=== PATIENT | female | born 1935 | race Two or more races ===

== ENCOUNTER 2019-07-09 20:19 | Outpatient (CLI) | payer MEDICARE | END 2019-07-09 20:20 | disposition EMS.NT | LOC: EMS 20:19 | PROVIDERS: ATTEND Surgery | DX: R55 Syncope and collapse (principal) ==

== ENCOUNTER 2020-10-05 15:05 | Outpatient (CLI) | payer MEDICARE | END 2020-10-05 15:06 | disposition home or self-care (01) | LOC: COV 15:05 | PROVIDERS: ATTEND Surgery | DX: Z01.812 Encounter for preprocedural laboratory examination (principal); C50.911 Malignant neoplasm of unspecified site of right female breast; Z20.822 Contact with and (suspected) exposure to COVID-19 ==

== ENCOUNTER 2020-10-08 08:04 | Day surgery (SDC) | payer MEDICARE ==
[~2020-10-08 08:04] MED LIST: ceFAZolin 2 GM/50 ML 2 GM/50 ML BAG IV ONE
--- OUTSIDE RECORDS SUMMARY | 2020-10-08 08:07 | EXTERNAL MEDICAL SUMMARY RPT | Continuity of Care Document ---
:1935 Demographics Phone Unavailable Preferred Language spn Marital Status Unknown Zoroastrian Affiliation Unknown Race Unknown Ethnic Group Unknown Author Organization [facility] Address [address] [place] [address] Phone Care Team Providers Name Role Phone Demmler Unavailable Unavailable Problems date description facility [id number] Malignant neoplasm of unspecified site of right [facility] Social History date description facility [id number]
[2020-10-08] MEDS ORDERED: BUFFERED LIDOCAINE 10 ML SYRINGE ONE (08:34)
[2020-10-08] MEDS ORDERED: BUPIVACAINE 0.5% PF 30 ML VIAL INFIL ONE ×2 (11:43)
[2020-10-08] MEDS ORDERED: PROPOFOL 200 MG/20 ML VIAL IVP ONE ×2 (11:44→12:40)
[2020-10-08] MEDS ORDERED: LIDOCAINE-MPF 2% 5 ML VIAL ONE (11:44)
[2020-10-08] MEDS ORDERED: LIDOCAINE 2%-EPI 1:100000 20 ML MDV SUBQ ONE ×2 (11:44)
[2020-10-08] MEDS ORDERED: fentaNYL 100 MCG/2 ML VIAL ONE (11:44)
[2020-10-08] MEDS ORDERED: MIDAZOLAM 2 MG/2 ML VIAL ONE (11:44)
--- NOTE | 2020-10-08 11:46 | ANESTHESIA ---
Pre-Anesthesia VS, & Labs - Diagnosis right breast cancer - Procedure right breast lumpectomy and sentinel node biopsy Vital Signs: Temp Pulse Resp BP Pulse Ox 36 C L 88 20 138/77 H 97 10/08/20 08:15 10/08/20 08:15 10/08/20 08:15 10/08/20 08:15 10/08/20 08:15 Height: 5 ft 2 in Weight (kg): 90.6 kg Body Mass Index: 36.5 BMI Classification: Obese - NPO >8 hours - Is Patient ?: No Home Medications and Allergies Home Medications: Ambulatory Orders Aspirin [Aspirin EC] 81 mg PO DAILY 10/01/20 Hydrochlorothiazide 25 mg PO DAILY 10/01/20 Valsartan [Diovan] 80 mg PO DAILY 10/01/20 Levothyroxine [Synthroid] 137 mcg PO DAILY 08/04/15 Aspirin [Aspirin EC] 81 mg PO DAILY 10/01/20 Hydrochlorothiazide 25 mg PO DAILY 10/01/20 Valsartan [Diovan] 80 mg PO DAILY 10/01/20 Allergies/Adverse Reactions: Allergies Allergy/AdvReac Type Severity Reaction Status Date / Time amoxicillin Allergy Rash Verified 10/01/20 10:26 nitrofurantoin Allergy Rash Verified 10/01/20 10:26 [From Macrobid] Penicillins Allergy Rash Verified 08/04/15 13:02 phenazopyridine Allergy Rash Verified 10/01/20 10:26 [From Pyridium] sulfamethoxazole Allergy Rash Verified 10/01/20 10:26 [From Bactrim] trimethoprim [From Bactrim] Allergy Rash Verified 10/01/20 10:26 Anes History & Medical History - Anesthetic History Anesthesia Complications: reports: Post-Operative Nausea/Vomiting - Medical History Cardiovascular: reports: Hypertension Pulmonary: reports: None Gastrointestinal: reports: None Urinary: reports: Chronic bladder infection Neuro: reports: TIA Musculoskeletal: reports: Osteoarthritis Endocrine/Autoimmune: reports: HyPOthyroidism Skin: reports: None Smoking Status: Never smoker Psychosocial: reports: No issues indicated History of Cancer?: Yes (breast and thyroid) - Surgical History General: reports: Cholecystectomy, Appendectomy, Colonoscopy Eyes Ears Nose Throat (EENT): reports: Cataracts Gynecologic: reports: Hysterectomy, Oophrectomy Orthopedic: reports: Rotator cuff repair, Arthroscopic surgery Exam General: Alert, Oriented x3, Cooperative, No acute distress Dental: WNL Mouth Openin Fingerbreadth Neck Mobility: Normal Mallampati classification: II Thyromental Distance: less than 4 cm Respiratory: Lungs clear, Normal breath sounds, No respiratory distress, No accessory muscle use Cardiovascular: Regular rate, Normal S1, Normal S2, No murmurs Mental/Cognitive Status: Alert/Oriented X3, Normal for patient Plan Anesthesia Type: General Consent for Procedure(s) Verified and Reviewed: Yes Code Status: Attempt Resuscitation ASA classification: 2-Mild systemic disease Is this case an emergency?: No
[2020-10-08] MEDS ORDERED: PHENYLEPHRINE 10 MG/ML VIAL ONE (12:06)
[2020-10-08] MEDS ORDERED: ONDANSETRON 4 MG/2 ML VIAL ONE (12:13)
[2020-10-08] MEDS ORDERED: DEXAMETHASONE 4 MG/ML VIAL ONE (12:13)
[2020-10-08] MEDS ORDERED: ePHEDrine 50 MG/ML VIAL IVP ONE (12:26)
[2020-10-08] MEDS ORDERED: SODIUM CHLORIDE 0.9% 10 ML VIAL IVP ONE (12:26)
--- NOTE | 2020-10-08 13:13 | OPERATIVE REPORT ---
Operative Report - General Procedure Date: 10/08/20 Planned Procedure: Right breast lumpectomy and sentinel node biopsy after needle localization and mapping Pre-Op Diagnosis: Biopsy-proven right breast cancer Procedure Performed: Right breast lumpectomy and sentinel node biopsy after needle localization and mapping Post Op Diagnosis: Biopsy-proven right breast cancer - Procedure Note Primary Surgeon: Marleen Anesthesia Provider: NOREEN Arora Anesthesia Technique: General LMA Pathology: 1. Right breast -Marked for orientation with short stitch superior, long stitch lateral, and double stitch anterior 2. [place] node number 1-10-second count >8900 3. [place] node number 2-10-second count > 9900 Estimated Blood Loss (mL): 15 Indications: Biopsy-proven right breast cancer Findings: 2 sentinel nodes No other concerning axillary or mammary pathology appreciated Complications: None apparent - Other Other Information/Narrative: After obtaining informed consent, the patient was brought to the operating room and placed in the supine position on the operating table. Following successful induction of general endotracheal anesthesia, appropriate padding of all bony prominences, and placement of appropriate monitors, the right breast was prepped and draped in the standard surgical fashion. A timeout was held per scope protocol. All elements of the surgical safety checklist were followed before, during, and after the procedure. We began the procedure with a sentinel node dissection. The site of the brightest node had been marked in radiology with 2 skin marker axis. The neoprobe was used to identify the site of greatest uptake at level 2 in the patient's axilla. An incision was created over this area of uptake and carried through the skin and subcutaneous tissue to enter the axillary node packet. The first sentinel node was identified. It was noted to be slightly enlarged but otherwise grossly normal in appearance. It was carefully dissected free from surrounding stop structures sharply, all lymphatics and vasculature were addressed with clips prior to division. The node was liberated into the field. 10-second counts are recorded. Survey of the axilla revealed a second target immediately posterior to the first. This node was quite small and normal in appearance. It was carefully dissected free from surrounding stop structures sharply, all lymphatics and vasculature were addressed with clips prior to division. The node was liberated into the field. 10-second counts are recorded. Background in the axilla was checked and found to be 6-14. Background in the room was 0. The axillary incision was then closed in 2 layers with Vicryl and Monocryl sutures. We turned our attention to the right breast mass. The area over the mass and in the periareolar region was infiltrated with a mixture of local anesthetics to cry to field block. A periareolar incision was then created and the mass and associated wire carefully dissected sharply from the subcutaneous tissue anteriorly and from the retromammary bursa posteriorly. The mass was removed in a single piece in a medial to lateral fashion. It was marked with a short stitch superior, long stitch lateral, and double stitch anterior. It was finally liberated sharply and delivered into the field. The wound was checked for hemostasis. It was irrigated again with warm water. The specimen xray was examined and found to contain the target clip and lesion well centered. The wound was then closed in 2 layers with Vicryl and Monocryl sutures. All sponge, needle, and instrument counts were correct at the conclusion of the case. The patient was let awakened anesthesia without difficulty and taken to the postanesthesia care unit in good condition.
[2020-10-08] MEDS ORDERED: ONDANSETRON 4 MG/2 ML VIAL IVP PRN ×2 (13:19→13:28)
[2020-10-08] MEDS ORDERED: oxyCODONE 5 MG TABLET PO PRN (13:19)
[2020-10-08] MEDS ORDERED: ACETAMINOPHEN 325 MG TABLET PO PRN (13:19)
[2020-10-08] MEDS ORDERED: IBUPROFEN 600 MG TABLET PO PRN (13:19)
[2020-10-08] MEDS ORDERED: LACTATED RINGERS 1,000 ML IV ONE (13:27)
[2020-10-08] MEDS ORDERED: ATROPINE ABBOJECT 1 MG/10 ML SYRINGE IVP PRN (13:28)
[2020-10-08] MEDS ORDERED: METOCLOPRAMIDE 10 MG/2 ML VIAL IVP PRN (13:28)
[2020-10-08] MEDS ORDERED: HYDROmorphone 0.5 MG/0.5 ML SYRINGE IVP PRN (13:28)
[2020-10-08] MEDS ORDERED: ePHEDrine 50 MG/ML VIAL IVP PRN (13:28)
[2020-10-08] MEDS ORDERED: fentaNYL 100 MCG/2 ML VIAL IVP PRN (13:28)
[2020-10-08] MEDS ORDERED: MORPHINE 2 MG/ML CARPUJECT IVP PRN (13:28)
[2020-10-08] MEDS ORDERED: NALOXONE 0.4 MG/ML VIAL IVP PRN (13:28)
[2020-10-08] MEDS ORDERED: LACTATED RINGERS 1,000 ML IV SCH (14:00)
[2020-10-08 14:32] VITALS: BP 117/56
--- NOTE | 2020-10-08 14:36 | Nuclear Medicine Report ---
PROCEDURE: Lymph Node Scintigraphy INDICATIONS: RT BREAST CA RADIOPHARMACEUTICAL: 0.5-1.0 mCi Millipore filtered Tc-99m sulfur colloid. TECHNIQUE: The area around the nipple was prepped and draped in a sterile fashion. Tc-99m sulfur colloid was in jected intra-dermally in the outer edge of the areola in the right breast. Images were obtained subs equently. A body contour outline was obtained. FINDINGS: There is 1 lymph node in the ipsilateral axilla, which is marked on the skin and the images for refer ring physician. IMPRESSION: Administration of radiotracer into the right breast periareolar region for intra-operati ve sentinel lymph node localization, identifying 1 lymph node at the right axilla, marked on the skin surface to assist in surgical localization. Reviewed by: Wood Noguera MD on 10/08/2020 2:35 PM PDT Approved by: Wood Noguera MD on 10/08/2020 2:35 PM PDT Station ID: [id number]
--- NOTE | 2020-10-08 15:24 | ANESTHESIA POST OP EVALUATION ---
Anesthesia Post Eval - Post Anesthesia Eval Vitals: Last Vital Signs Temp 36.2 C L 10/08/20 14:20 Pulse 86 10/08/20 14:20 Resp 16 10/08/20 14:20 BP 117/56 L 10/08/20 14:20 Pulse Ox 96 10/08/20 14:20 CV Function Including HR & BP: Stable Pain Control: Satisfactory Nausea & Vomiting: Negative Mental Status: Baseline Respiratory Status: Airway Patent Hydration Status: Satisfactory Anesthesia Complications: None
[2020-10-08] MEDS ORDERED: BUFFERED LIDOCAINE 10 ML SYRINGE IU ONE (15:54)
--- NOTE | 2020-10-09 08:12 | Mammography Report ---
UNILATERAL RIGHT DIGITAL DIAGNOSTIC MAMMOGRAM: 10/08/2020 CLINICAL: Pre-op wire localization with ultrasound guidance. Comparison is made to exam dated: 10/08/2020 localization - [facility]. There are scattered fibroglandular elements in right breast. There is a mass in the right breast at 10 o'clock anterior depth, and this was wire-located for surgi adelina excision today. IMPRESSION: KNOWN BIOPSY PROVEN MALIGNANCY The mass in the right breast was localized to assist in surgical excision. Wire at expected margin o f the mass and localization clip from prior biopsy. Future imaging is recommended as follows: 03/08/2021 left mammogram and an ultrasound. This exam was interpreted at Station ID: [id number]. NOTE: For mammograms, a report in lay terms will be sent to the patient. Approximately 15% of breast malignancies will not be visualized mammographically. In the management of a palpable breast mass, a negative mammogram must not discourage biopsy of a clinically suspicious lesion. Electronically Signed By: Wood Noguera M.D. sdh/:10/08/2020 16:20:58 ACR BI-RADS Category 6: Known biopsy proven malignancy 3346F PARENCHYMAL PATTERN: (A) - The breast(s) demonstrate(s) scattered fibroglandular densities. BI-RADS CATEGORY: (6) - 6 Unspecified - other recall n/a LATERALITY: (B)
--- NOTE | 2020-10-09 08:12 | Mammography Report ---
SPECIMEN: 10/08/2020 CLINICAL: Right breast specimen. Specimen from OR was evaluated. IMPRESSION: SPECIMEN The specimen radiograph contains the prior biopsy marker and the mass of concern, faintly visualized. Future imaging is recommended as follows: 03/08/2021 left mammogram and an ultrasound. This exam was interpreted at Station ID: [id number]. Wood Noguera M.D. sdh/:10/08/2020 16:17:09 BI-RADS CATEGORY: () - Unspecified - other recall n/a LATERALITY: (B)
--- NOTE | 2020-10-09 08:12 | Ultrasound Report ---
ULTRASOUND GUIDED WIRE LOCALIZATION RIGHT BREAST WITH POST DIGITAL MAMMOGRAPHIC AND ULTRASOUND IMAGIN G AND RADIOGRAPHIC SPECIMEN IMAGIN10/08/2020 CLINICAL: Right breast wire placement. Correlation is made to exams dated: 09/05/2020 breast MRI, 07/05/2020 ultrasound biopsy, 07/05/2020 rebecca mogram, 06/26/2020 ultrasound, 06/05/2020 ultrasound, and 06/05/2020 mammogram - [facility]. A wire localization using ultrasound guidance was performed for the concerning circumscribed lobulate d mass located in the right breast at 10 o'clock middle depth. This was described on the previous ma mmography and ultrasound reports. The skin was prepped in the usual manner. Local anesthetic was ad ministered to the access site. The localization was approached from the medial aspect. A J-hook wir e was inserted into the targeted area through an introducer device under ultrasound guidance. A ster ile dressing was applied to the access site. Post placement digital mammographic and ultrasound imag ing demonstrates the tip demarcates the boundaries of the targeted area. IMPRESSION: WIRE LOCALIZATION Wire localization for the mass in the right breast at 10 o'clock middle depth was successful. The im aged specimen includes the lesion and a biopsy clip. A specimen radiograph was obtained. Future imaging is recommended as follows: 03/08/2021 left mammogram and an ultrasound. This exam was interpreted at Station ID: [id number]. Wood Noguera M.D. sdh/:10/08/2020 16:15:18 BI-RADS CATEGORY: () - Unspecified - other recall n/a LATERALITY: (B)
== END 2020-10-08 08:05 | disposition home or self-care (01) ==
LOC: SDS 08:04
PROVIDERS: ATTEND Surgery
PROC: 0HBT0ZX Excision of Right Breast, Open Approach, Diagnostic (ICD-10-PCS; 2020-10-08)
PROC: 0HBT0ZZ Excision of Right Breast, Open Approach (ICD-10-PCS; principal; 2020-10-08 12:45)
DX: C50.411 Malignant neoplasm of upper-outer quadrant of right female breast (principal); Z17.0 Estrogen receptor positive status [ER+]; I10 Essential (primary) hypertension; Z86.73 Personal history of transient ischemic attack (TIA), and cerebral infarction without residual deficits; E66.9 Obesity, unspecified; Z68.36 Body mass index [BMI] 36.0-36.9, adult
CPT/HCPCS: 19285; 19301; 38500; 76098; 77065; 78195; J0690; J7120

== ENCOUNTER 2021-09-13 10:52 | Outpatient (CLI) | payer MEDICARE ==
--- NOTE | 2021-09-13 11:35 | DEXA Report ---
PROCEDURE: Dexa Spine and/or Hip INDICATIONS: POST MENOPAUSAL TECHNIQUE: Dual energy x-ray absorptiometry (DXA) was performed on a [employer] CV System. Regions measur ed are the AP Spine, femoral neck, and if needed forearm. COMPARISON: None. FINDINGS: Lumbar Spine: Bone Mineral Density 1.118 g/cm/cm,T score -0.5. Left Hip: Bone Mineral Density 0.774 g/cm/cm,T score -1.9. Left Femoral Neck: Bone Mineral Density 0.713 g/cm/cm, T score -2.3. (T score greater or equal to -1.0: NORMAL) (T score from -1.1 to -2.4: OSTEOPENIA) (T score less than or equal to -2.5 to: OSTEOPOROSIS) Impression: Osteopenia. Patients with diagnosis of osteoporosis or osteopenia should have regular bone mineral density assess ment. For those eligible for Medicare, routine testing is allowed once every 2 years. Testing frequ ency can be increased for patients who have rapidly progressing disease or for those who are receivin g medical therapy to restore bone mass. Reviewed by: Ilia German MD on 09/13/2021 11:33 AM PDT Approved by: Ilia German MD on 09/13/2021 11:33 AM PDT Station ID: [id number]
== END 2021-09-13 10:53 | disposition home or self-care (01) ==
LOC: DI 10:52
PROVIDERS: ATTEND Internal Medicine Hematology & Oncology
DX: Z78.0 Asymptomatic menopausal state (principal); M85.89 Other specified disorders of bone density and structure, multiple sites

== ENCOUNTER 2022-09-16 13:32 | Emergency (ER) | payer MEDICARE ==
--- NOTE | 2022-09-16 13:58 | ED Physician Documentation ---
PD HPI FOCAL NEURO - Stated complaint Stated Complaint: SLURRED SPEECH/CONFUSION - Chief complaint Chief Complaint: Neuro - History obtained from History obtained from: Patient, Family - History of Present Illness Timing - onset: How many minutes ago (35), Today Timing - duration: Minutes (5-10) Timing - details: Abrupt onset, Now resolved Severity of deficit: Moderate (daughter noted the patient to abruptly start having trouble communicating with saying inappropriate words to answer questions and answering most questions with just "I'm okay". No focal weakness. Concern for CVA and so started to bring pt immediately to ED. Symptoms improved completely 5-10 min.) Weakness: No: Face, Arm, Leg Numbness: No: Face, Arm, Leg Associated symptoms: No: Headache, Nausea / vomiting, Head injury Similar symptoms before: Diagnosis (had similar symptoms 2017 and dx with TIA; no appparent CVA at that time.) Recently seen: Not recently seen Review of Systems Constitutional: denies: Fever, Chills Nose: denies: Rhinorrhea / runny nose, Congestion Throat: denies: Sore throat Respiratory: denies: Cough Neurologic: reports: Difficulty speaking. denies: Focal weakness, Numbness, Headache, Head injury, LOC PD PAST MEDICAL HISTORY - Past Medical History Cardiovascular: Hypertension Respiratory: None Neuro: TIA Endocrine/Autoimmune: HyPOthyroidism GI: None : Chronic bladder infection HEENT: Chronic vision loss, Chronic hearing loss, Other Psych: None, Anxiety Musculoskeletal: Osteoarthritis Derm: None - Past Surgical History Past Surgical History: Yes General: Cholecystectomy, Appendectomy, Colonoscopy Ortho: Rotator cuff repair, Arthroscopic surgery /PIGMENT MIXER: Hysterectomy, Oophrectomy HEENT: Cataracts - Present Medications Home Medications: Ambulatory Orders Medication Instructions Recorded Confirmed Levothyroxine [Synthroid] 137 mcg PO DAILY 08/04/15 09/16/22 Aspirin [Aspirin EC] 81 mg PO DAILY 10/01/20 09/16/22 Valsartan [Diovan] 80 mg PO DAILY 10/01/20 09/16/22 hydroCHLOROthiazide 12.5 mg PO DAILY 10/01/20 09/16/22 [Hydrochlorothiazide] Clopidogrel [Plavix] 75 mg PO DAILY 30 Days #30 tablet 09/16/22 - Allergies Allergies/Adverse Reactions: Allergies Allergy/AdvReac Type Severity Reaction Status Date / Time amoxicillin Allergy Rash Verified 11/06/20 15:31 nitrofurantoin Allergy Rash Verified 11/06/20 15:31 [From Macrobid] Penicillins Allergy Rash Verified 11/06/20 15:31 phenazopyridine Allergy Rash Verified 11/06/20 15:31 [From Pyridium] sulfamethoxazole Allergy Rash Verified 11/06/20 15:31 [From Bactrim] trimethoprim [From Bactrim] Allergy Rash Verified 11/06/20 15:31 - Social History Does the pt smoke?: No Smoking Status: Never smoker Does the pt drink ETOH?: Yes Does the pt have substance abuse?: No - Immunizations Immunizations are current?: Yes PD ED PE NORMAL - Vitals Vital signs reviewed: Yes - General General: Alert and oriented X 3, No acute distress, Well developed/nourished - HEENT HEENT: Atraumatic, PERRL, EOMI - Neck Neck: Supple, no meningeal sign, No adenopathy - Cardiac Cardiac: RRR, No murmur - Respiratory Respiratory: Clear bilaterally - Derm Derm: Normal color, Warm and dry - Extremities Extremities: No edema, No calf tenderness / cord - Neuro Neuro: Alert and oriented X 3, calender let off operator 2-12 intact, No motor deficit, No sensory deficit, Normal speech, Other NIHSS - Level of Consciousness Level of consciousness: (0) Alert, Keenly responsive LOC Questions: (0) Answers both Q's correct LOC Commands: (0) Performs both correctly - Gaze Best Gaze: (0) Normal - Visual Visual: (0) No loss - Facial Palsy Facial Palsy: (0) Normal, symmetrical movement - Motor Arms (both separate) Motor Arm (right): (0) No drift Motor Arm (left): (0) No drift - Motor Legs (both separate) Motor Leg (right): (0) No drift Motor Leg (left): (0) No drift - Limb Ataxia Limb Ataxia: (0) Absent - Sensory Sensory: (0) Normal - Best Language Best Language: (0) No aphasia - Dysarthria Dysarthria: (0) Normal - Extinction and Inattention (formally neg Extinction and inattention: (0) No abnormality - Total Score/Results Total Score/Result: 0 Results - Vitals Vitals: Vital Signs - 24 hr 09/16/22 09/16/22 09/16/22 13:45 14:27 15:00 Temperature 36.8 C Heart Rate 82 81 77 Respiratory 20 26 H 23 Rate Blood Pressure 189/72 H 131/80 H 137/77 H O2 Saturation 97 98 96 09/16/22 17:00 Temperature 36.1 C L Heart Rate 83 Respiratory 20 Rate Blood Pressure 147/78 H O2 Saturation 94 Oxygen O2 Source Room air - Labs Labs: Laboratory Tests 09/16/22 09/16/22 14:49 14:49 WBC 8.0 RBC 5.13 Hgb 14.3 Hct 44.2 MCV 86.2 MCH 27.9 MCHC 32.4 RDW 12.7 Plt Count 274 MPV 9.2 Neut # (Auto) 6.0 Lymph # (Auto) 1.2 L [place] # (Auto) 0.4 Eos # (Auto) 0.3 Baso # (Auto) 0.1 Absolute Nucleated RBC 0.00 Nucleated RBC % 0.0 Sodium 134 L Potassium 4.2 Chloride 98 L Carbon Dioxide 29 Anion Gap 7.0 BUN 24 H Creatinine 0.6 Estimated GFR (MDRD) 95 Glucose 115 H Calcium 9.0 Total Bilirubin 0.7 AST 19 ALT 19 Alkaline Phosphatase 117 Total Protein 7.1 Albumin 3.8 Globulin 3.3 Albumin/Globulin Ratio 1.2 Lipase 41 - Rads (name of study) head and neck CT-A Relevant Findings:: Prelim report reviewed (no acute findings on Head CT. No hemodynamically significant stenoses on angio portion. ), See rad report PD Medical Decision Making - ED course Complexity details: reviewed results, re-evaluated patient (head and neck CT-A done without acute abnormal findings nor any hemodynamically significant stenoses. ), considered differential, d/w patient, d/w family (daughter, who gives her perspective on onset and duration of symptoms. ) ED course: had abrupt aphasia that has improved enroute here. Lasted 10-15 minutes. Had similar about 6 years ago and attirbuted to small stroke/TIA. No focal weakness and has had normal speech at home. No signs of prior CVA. The approach could be CT-A head and neck versus MRI/MRA or MRI with carotid dopplers. the CT is most available at this time. CT-A did not show any LVO, bleeds. stenoses, nor signs of acute CVA. Chronic microvascular changes noted on report. TIA symptoms now resolved. She was on baby ASA daily. Neurology guidelines commonly suggest dual anti-platelet treatment for 30 days. Will add Plavix. Patient and daughter are comfortable with results and plan. Patient wanting to go home. Departure - Departure Disposition: 01 Home, Self Care Clinical Impression: Aphasia, TIA (transient ischemic attack) Condition: Stable Record reviewed to determine appropriate education?: Yes Instructions: ED Transient Ischemic Attack Follow-Up: Jair Eckert MD [Primary Care Provider] - Prescriptions: Clopidogrel [Plavix] 75 mg PO DAILY 30 Days #30 tablet Comments: Your CT scan and angiograms of the neck and head do not show any acute abnormalities. They do comment on chronic microvascular changes (essentially age-related brain shrinkage). There were no areas of bleeding, tumors, swelling or obvious's new stroke. The contrast showed good blood flow to all areas and there were no blockages or hemodynamically significant stenoses. This essentially means no areas that need stenting or opening. However it is assumed you had a temporary blockage of some of the smaller vessels within the brain leading to your symptoms. For a TIA, the neurology guidelines typically suggest dual platelet therapy of both a baby aspirin and Plavix (clopidogrel) for 30 days and then to continue with either an increased dose of aspirin or Plavix alone after that. Follow-up with your primary care in the next week or 2, call for an appointment. See which they would prefer to continue with after the 30 days. Otherwise continue with your usual medicines. I sent your prescription to [facility] pharmacy. Discharge Date/Time: 09/16/22 17:29
[2022-09-16] MEDS ORDERED: SODIUM CHLORIDE 0.9% 1,000 ML IV STA (14:43)
[2022-09-16 14:55] LABS: BASOPHILS # (AUTO) 0.1 10^3/uL (0.0-0.1); BASOPHILS % (AUTO) 0.6 %; EOSINOPHILS # (AUTO) 0.3 10^3/uL (0.0-0.7); HCT - HEMATOCRIT 44.2 % (37.0-47.0); HGB - HEMOGLOBIN 14.3 g/dL (12.0-16.0); LYMPHOCYTES # (AUTO) 1.2 10^3/uL (1.5-3.5); LYMPHOCYTES % (AUTO) 15.2 %; MEAN CORPUSCULAR HEMOGLOBIN 27.9 pg (27.0-31.0); MEAN CORPUSCULAR HGB CONC 32.4 g/dL (32.0-36.0); MEAN CORPUSCULAR VOLUME 86.2 fL (81.0-99.0); MEAN PLATELET VOLUME 9.2 fL (7.9-10.8); MONOCYTES # (AUTO) 0.4 10^3/uL (0.0-1.0); MONOCYTES % (AUTO) 5.4 %; NEUTROPHILS % (AUTO) 74.3 %; PLT - PLATELET COUNT 274 10^3/uL (130-450); RED BLOOD COUNT 5.13 10^6/uL (4.20-5.40); RED CELL DISTRIBUTION WIDTH 12.7 % (12.0-15.0)
[2022-09-16 15:14] LABS: ALBUMIN 3.8 g/dL (3.2-5.5); ALBUMIN/GLOBULIN RATIO 1.2 (1.0-2.2); BILIRUBIN,TOTAL 0.7 mg/dL (0.2-1.0); CREATININE 0.6 mg/dL (0.4-1.0); POTASSIUM 4.2 mmol/L (3.5-5.0); TOTAL PROTEIN 7.1 g/dL (6.7-8.2)
[2022-09-16] MEDS ORDERED: iohexoL-300 100 ML VIAL ONE (15:21)
--- NOTE | 2022-09-16 16:28 | CT Report ---
PROCEDURE: ANGIO HEAD W/WO INDICATIONS: aphasia for 15-20 min CONTRAST: 80ml Omnipaque 300 TECHNIQUE: Precontrast 4.5 mm thick angled axial sections acquired from the foramen magnum to the vertex. Afte r the administration of intravenous contrast, 1 mm thick sections acquired through the [place] is. Postcontrast 4.5 mm thick sections then re-acquired from the foramen magnum to the vertex. 3-di mensional wdogrcz-grulnnezi-klzbhqitqc (MIP) and/or volume rendering reformats were acquired of the c entral intracranial vasculature. For radiation dose reduction, the following was used: automated ex posure control, adjustment of mA and/or kV according to patient size. COMPARISON: CTA head 09/16/2022, CTA head 08/04/2015 FINDINGS: Image quality: Excellent. Anterior circulation: Intracranial internal carotid arteries are normal in size and flow. The flow within the paired anterior cerebral arteries is normal and symmetric. The flow within the middle cer ebral arteries is normal and symmetric. The anterior communicating artery is seen. No aneurysms are seen. Posterior circulation: Visualized portions of the vertebral arteries demonstrate normal caliber, and join to form a normal appearing basilar artery. Flow within the posterior cerebral arteries is norm al and symmetric. No aneurysms are seen. The ventricular system and cortical sulci demonstrate atrophy, consistent for patient's stated age. There are areas of hypodensity in the periventricular and subcortical white matter. There is no acut e intra or extra-axial fluid collection. No acute hemorrhage, mass lesion or midline shift. Brainst em is unremarkable. Globes are symmetrical. Sinuses demonstrate significant mucosal thickening with air within the ethmoi d air cells and extending into the visualized maxillary sinuses. Osseous structures are intact. IMPRESSION: 1. No acute intracranial process. 2. Moderate atrophy and chronic microvascular ischemic changes. 3. No areas of hemodynamically significant stenosis, vascular occlusion or aneurysmal dilation within the anterior circulation. 4. No areas of hemodynamically significant stenosis, vascular occlusion or aneurysmal dilation within the posterior circulation. 5. Prominent mucosal thickening with air in the ethmoid and maxillary sinuses. Recommend correlation to symptoms of sinusitis. Reviewed by: Theresa Victoria MD on 09/16/2022 4:27 PM PDT Approved by: Theresa Victoria MD on 09/16/2022 4:27 PM PDT Station ID: [id number]
--- NOTE | 2022-09-16 16:31 | CT Report ---
PROCEDURE: ANGIO NECK W INDICATIONS: aphasia for 15-20 minutes CONTRAST: 80ml Omnipaque 300 TECHNIQUE: After the administration of intravenous contrast, 1.5 mm axial sections acquired from the aortic arch to the [place]. Coronal 3-D maximum intensity projection (MIP) and/or volume rendering ref ormats were then performed. For radiation dose reduction, the following was used: automated exposur e control, adjustment of mA and/or kV according to patient size. COMPARISON: CTA head 09/16/2022, CTA head 08/04/2015. FINDINGS: Image quality: Excellent. Carotid system: The great vessels demonstrate a conventional anatomy as they arise from the aortic a rch. The origins of the common carotid arteries appear patent. The common carotid arteries demonstr ate normal calibers and courses. The bifurcation regions appear normal bilaterally. The internal ca rotid arteries demonstrate normal caliber and course. Posterior circulation: The origins of the vertebral arteries appear patent. The more superior porti ons of the vertebral arteries demonstrate normal course and caliber. They join to form a normal appe aring basilar artery. Soft tissues: Visualized neck soft tissues demonstrate no suspicious abnormalities. Prominent mucosa l thickening within the maxillary and ethmoid air cells with scattered areas of air. The thyroid is n ot visualized. Bones: No suspicious bony lesions. Visualized cervical spine appears normally aligned. IMPRESSION: There are no areas of hemodynamically significant stenosis, vascular occlusion or aneurysmal dilation within the neck vasculature. Prominent sinus disease. Recommend correlation of potential sinusitis. The estimate of stenosis included in the report of the imaging study was calculated using the NASCET method CLINICAL RECOMMENDATION STATEMENTS: In patients <35 years with an ITN detected on CT, MRI, or extrathyroidal ultrasound, the Committee re commends further evaluation with dedicated thyroid ultrasound if the nodule is "e1 cm and has no susp icious imaging features, and if the patient has normal life expectancy. In patients "e35 years with an ITN detected on CT, MRI, or extrathyroidal ultrasound, the Committee r ecommends further evaluation with dedicated thyroid ultrasound if the nodule is "e1.5 cm and has no s uspicious imaging features, and if the patient has normal life expectancy. (ACR, 2014) Reviewed by: Theresa Victoria MD on 09/16/2022 4:29 PM PDT Approved by: Theresa Victoria MD on 09/16/2022 4:29 PM PDT Station ID: [id number]
[2022-09-16 17:03] VITALS: BP 147/78
[2022-09-16] MEDS ORDERED: CLOPIDOGREL 75 MG TABLET PO STA (17:10)
[2022-09-16] MEDS ORDERED: iohexoL-300 100 ML VIAL IVP ONE (17:47)
== END 2022-09-16 17:29 | disposition home or self-care (01) ==
LOC: ED 13:32
DX: G45.9 Transient cerebral ischemic attack, unspecified (principal)
CPT/HCPCS: 36415; 70496; 70498; 80053; 83690; 85025; 99284; A9270; Q9967

== ENCOUNTER 2022-09-24 17:32 | Inpatient (IN) | payer MEDICARE ==
--- NOTE | 2022-09-24 17:59 | ED Physician Documentation ---
History of Present Illness - Stated complaint Stated Complaint: FEMALE - Chief complaint Chief Complaint: General - History obtained from History obtained from: Patient, Family - Additonal information Additional information: 87-year-old woman who presents with her daughter for the evaluation of bloody diarrhea starting early today. Its dark and bloody and associated with some weakness but not dizziness. No history of internal bleeding. She was placed on Plavix about a week ago for a TIA and is also on aspirin. She has no abdominal pain with this. She has a history of CHERI, appendectomy, cholecystectomy. No abdominal vascular surgeries. Last colonoscopy approximately 3 years ago and negative per her. 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: Ovarian cancer, Breast cancer : Chronic bladder infection HEENT: Chronic vision loss, Chronic hearing loss, Other Psych: None, Anxiety Musculoskeletal: Osteoarthritis Derm: None - Past Surgical History Past Surgical History: Yes General: Cholecystectomy, Appendectomy, Colonoscopy Ortho: Rotator cuff repair, Arthroscopic surgery /RODDING MACHINE TENDER: Hysterectomy, Oophrectomy HEENT: Cataracts - Present Medications Home Medications: Ambulatory Orders Medication Instructions Recorded Confirmed Levothyroxine [Synthroid] 137 mcg PO DAILY 08/04/15 09/24/22 Aspirin [Aspirin EC] 81 mg PO DAILY 10/01/20 09/24/22 Valsartan [Diovan] 80 mg PO DAILY 10/01/20 09/24/22 Clopidogrel [Plavix] 75 mg PO DAILY 30 Days #30 tablet 09/16/22 09/24/22 - Allergies Allergies/Adverse Reactions: Allergies Allergy/AdvReac Type Severity Reaction Status Date / Time amoxicillin Allergy Rash Verified 09/24/22 17:54 nitrofurantoin Allergy Rash Verified 09/24/22 17:54 [From Macrobid] Penicillins Allergy Rash Verified 09/24/22 17:54 phenazopyridine Allergy Rash Verified 09/24/22 17:54 [From Pyridium] sulfamethoxazole Allergy Rash Verified 09/24/22 17:54 [From Bactrim] trimethoprim [From Bactrim] Allergy Rash Verified 09/24/22 17:54 - Social History Does the pt smoke?: No Smoking Status: Never smoker Does the pt drink ETOH?: Yes Does the pt have substance abuse?: No - Immunizations Immunizations are current?: Yes PD ED PE NORMAL - Vitals Vital signs reviewed: Yes - General General: Alert and oriented X 3, Other (Hard of hearing) - Cardiac Cardiac: RRR, No murmur - Respiratory Respiratory: No respiratory distress, Clear bilaterally - Abdomen Abdomen: Normal bowel sounds, Soft, Non tender - Neuro Neuro: Alert and oriented X 3, Normal speech Results - Vitals Vitals: Vital Signs - 24 hr 09/24/22 09/24/22 09/24/22 17:51 17:54 18:01 Temperature 36.5 C Heart Rate 108 H Respiratory 17 17 16 Rate Blood Pressure 125/74 O2 Saturation 98 09/24/22 09/24/22 18:49 19:43 Temperature Heart Rate 100 95 Respiratory 19 16 Rate Blood Pressure 125/73 113/73 O2 Saturation 100 98 Oxygen O2 Source Room air - Labs Labs: Laboratory Tests 09/24/22 09/24/22 09/24/22 18:00 18:00 18:00 WBC 9.2 RBC 4.33 Hgb 12.2 Hct 37.0 MCV 85.5 MCH 28.2 MCHC 33.0 RDW 12.7 Plt Count 272 MPV 9.6 Neut # (Auto) 7.5 H Lymph # (Auto) 1.2 L [place] # (Auto) 0.4 Eos # (Auto) 0.1 Baso # (Auto) 0.0 Absolute Nucleated RBC 0.00 Nucleated RBC % 0.0 PT 12.3 INR 1.1 Sodium 131 L Potassium 3.9 Chloride 95 L Carbon Dioxide 28 Anion Gap 8.0 BUN 31 H Creatinine 0.7 Estimated GFR (MDRD) 79 L Glucose 204 H Estimat Average Glucose Hemoglobin A1c % Calcium 8.6 Total Bilirubin 0.4 AST 19 ALT 14 Alkaline Phosphatase 98 Total Protein 6.7 Albumin 3.7 Globulin 3.0 Albumin/Globulin Ratio 1.2 Triglycerides Cholesterol LDL Cholesterol, Calc VLDL Cholesterol HDL Cholesterol LDL/HDL Ratio Cholesterol/HDL Ratio Blood Type Blood Type Recheck Antibody Screen 09/24/22 09/24/22 09/24/22 18:00 18:00 18:00 WBC RBC Hgb Hct MCV MCH MCHC RDW Plt Count MPV Neut # (Auto) Lymph # (Auto) [place] # (Auto) Eos # (Auto) Baso # (Auto) Absolute Nucleated RBC Nucleated RBC % PT INR Sodium Potassium Chloride Carbon Dioxide Anion Gap BUN Creatinine Estimated GFR (MDRD) Glucose Estimat Average Glucose 120 H Hemoglobin A1c % 5.8 Calcium Total Bilirubin AST ALT Alkaline Phosphatase Total Protein Albumin Globulin Albumin/Globulin Ratio Triglycerides 43 Cholesterol 108 LDL Cholesterol, Calc 60 VLDL Cholesterol 9 HDL Cholesterol 39 L LDL/HDL Ratio 1.5 Cholesterol/HDL Ratio 2.8 Blood Type Blood Type Recheck B POSITIVE Antibody Screen 09/24/22 19:01 WBC RBC Hgb Hct MCV MCH MCHC RDW Plt Count MPV Neut # (Auto) Lymph # (Auto) [place] # (Auto) Eos # (Auto) Baso # (Auto) Absolute Nucleated RBC Nucleated RBC % PT INR Sodium Potassium Chloride Carbon Dioxide Anion Gap BUN Creatinine Estimated GFR (MDRD) Glucose Estimat Average Glucose Hemoglobin A1c % Calcium Total Bilirubin AST ALT Alkaline Phosphatase Total Protein Albumin Globulin Albumin/Globulin Ratio Triglycerides Cholesterol LDL Cholesterol, Calc VLDL Cholesterol HDL Cholesterol LDL/HDL Ratio Cholesterol/HDL Ratio Blood Type B POSITIVE Blood Type Recheck Antibody Screen NEGATIVE PD Medical Decision Making - ED course ED course: 87-year-old woman who presents with an acute lower GI bleed. Her hemoglobin is about 2 points lower than normal but certainly not alarming. Her BUN is elevated consistent with a GI bleed. While in the department she had a large bloody bowel movement. So seems reasonable to put her in observation to monitor the bleeding. I spoke with our on-call surgeon, Dr. Finch at 6:52 PM who recommends a clear liquid diet and admission to medicine for serial H&H. If her hemoglobin goes below 10 she would like a call. I will admit to telehealth hospitalist after 7 PM shift change. Departure - Departure Disposition: ED Place in Observation Clinical Impression: GIB (gastrointestinal bleeding) Condition: Stable Discharge Date/Time: 09/24/22 21:00
[2022-09-24 18:14] LABS: BASOPHILS % (AUTO) 0.4 %; EOSINOPHILS # (AUTO) 0.1 10^3/uL (0.0-0.7); EOSINOPHILS % (AUTO) 0.9 %; HGB - HEMOGLOBIN 12.2 g/dL (12.0-16.0); LYMPHOCYTES # (AUTO) 1.2 10^3/uL (1.5-3.5); LYMPHOCYTES % (AUTO) 12.8 %; MEAN CORPUSCULAR HEMOGLOBIN 28.2 pg (27.0-31.0); MEAN CORPUSCULAR VOLUME 85.5 fL (81.0-99.0); MEAN PLATELET VOLUME 9.6 fL (7.9-10.8); MONOCYTES # (AUTO) 0.4 10^3/uL (0.0-1.0); MONOCYTES % (AUTO) 4.3 %; NEUTROPHILS # (AUTO) 7.5 10^3/uL (1.5-6.6); NEUTROPHILS % (AUTO) 81.3 %; PLT - PLATELET COUNT 272 10^3/uL (130-450); RED BLOOD COUNT 4.33 10^6/uL (4.20-5.40); RED CELL DISTRIBUTION WIDTH 12.7 % (12.0-15.0); WHITE BLOOD COUNT 9.2 x10^3/uL (4.8-10.8)
[2022-09-24 18:22] LABS: INR 1.1 (0.8-1.2); PT - PROTHROMBIN TIME 12.3 secs (9.9-12.6)
[2022-09-24 18:29] LABS: ALBUMIN 3.7 g/dL (3.2-5.5); ALBUMIN/GLOBULIN RATIO 1.2 (1.0-2.2); BILIRUBIN,TOTAL 0.4 mg/dL (0.2-1.0); CALCIUM 8.6 mg/dL (8.5-10.3); CREATININE 0.7 mg/dL (0.4-1.0); POTASSIUM 3.9 mmol/L (3.5-5.0); TOTAL PROTEIN 6.7 g/dL (6.7-8.2)
[2022-09-24] MEDS ORDERED: PANTOPRAZOLE 40 MG VIAL IVP STA (18:52)
[2022-09-24] MEDS ORDERED: ONDANSETRON 4 MG/2 ML VIAL IVP PRN (20:03)
[2022-09-24] MEDS ORDERED: SODIUM CHLORIDE FLUSH 0.9% 10 ML SYRINGE IVP PRN (20:03)
[2022-09-24] MEDS ORDERED: ACETAMINOPHEN 325 MG TABLET PO PRN (20:03)
--- NOTE | 2022-09-24 20:13 | HISTORY & PHYSICAL EXAMINATION ---
Chief Complaint - Chief Complaint Chief Complaint: Blood in stools History of Present Illness - Admitted From Admitted From:: Home - History Obtained From Records Reviewed: Yes History obtained from: Chelly daughter, patient and ER MD Exam Limitations: Telemedicine - History of Present Illness HPI Comment/Other: 87-year-old woman who presents with her daughter for the evaluation of bloody diarrhea starting early today. Its dark and bloody and associated with some weakness but not dizziness. No history of internal bleeding. She was placed on Plavix about a week ago for a TIA and is also on aspirin. She has no abdominal pain with this. She has a history of CHERI, appendectomy, cholecystectomy. No abdominal vascular surgeries. Last colonoscopy approximately 3 years ago and negative per her. 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 Need to decide regarding antiplatelets prior to DC, Surgeon called by ER for possible colonoscopy in am. 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: Ovarian cancer, Breast cancer : reports: Chronic bladder infection HEENT: reports: Chronic vision loss, Chronic hearing loss, Other Psych: reports: None, Anxiety Musculoskeletal: reports: Osteoarthritis Derm: reports: None MRSA Hx?: No - Past Surgical History General: reports: Cholecystectomy, Appendectomy, Colonoscopy Ortho: reports: Rotator cuff repair, Arthroscopic surgery /DISC RULER OPERATOR: reports: Hysterectomy, Oophrectomy HEENT: reports: Cataracts - POLST Patient has POLST: No Meds/Allgy - Home Medications Home Medications: Ambulatory Orders Medication Instructions Recorded Confirmed Levothyroxine [Synthroid] 137 mcg PO DAILY 08/04/15 09/24/22 Aspirin [Aspirin EC] 81 mg PO DAILY 10/01/20 09/24/22 Valsartan [Diovan] 80 mg PO DAILY 10/01/20 09/24/22 Clopidogrel [Plavix] 75 mg PO DAILY 30 Days #30 tablet 09/16/22 09/24/22 - Allergies Allergies/Adverse Reactions: Allergies Allergy/AdvReac Type Severity Reaction Status Date / Time amoxicillin Allergy Rash Verified 09/24/22 17:54 nitrofurantoin Allergy Rash Verified 09/24/22 17:54 [From Macrobid] Penicillins Allergy Rash Verified 09/24/22 17:54 phenazopyridine Allergy Rash Verified 09/24/22 17:54 [From Pyridium] sulfamethoxazole Allergy Rash Verified 09/24/22 17:54 [From Bactrim] trimethoprim [From Bactrim] Allergy Rash Verified 09/24/22 17:54 Review of Systems - Ears, Nose & Throat Ears, Nose & Throat: reports: Other (sinusitis) - Gastrointestinal Gastrointestinal: reports: Bloody stools Prior Level of Functionality: Walk with cane Exam - Vital Signs Vital Signs: Vital Signs x48h Temp Pulse Resp BP Pulse Ox 09/24/22 19:43 95 16 113/73 98 09/24/22 18:49 100 19 125/73 100 09/24/22 18:01 16 09/24/22 17:54 17 09/24/22 17:51 36.5 C 108 H 17 125/74 98 - Physical Exam General Appearance: positive: No acute distress, Alert Eyes Bilateral: positive: Normal inspection Neck: positive: Nml inspection, Thyroid nml Cardiovascular: positive: Regular rate & rhythm Abdomen: positive: Non-tender, No organomegaly, Nml bowel sounds Back: positive: Nml inspection Skin: positive: Color nml, No rash Neurologic/Psychiatric: positive: Oriented x3, CN's nml (2-12) Sepsis Event Note (H) - Evaluation Current Stage of Sepsis: Ruled out Conclusion/Plan - Problem List (1) GIB (gastrointestinal bleeding) Conclusion/Plan: Monitor if any hemodynamic changes repeat CBC or else will check in am Iv protonix for now NPO except sips after midnight Hold ASA and Plavix (2) HTN (hypertension) Conclusion/Plan: Continue Diovan Hold HCTZ may need adjustement or change in meds as per clinical condition (3) Elevated glucose level Conclusion/Plan: Check A1c (4) TIA (transient ischemic attack) Conclusion/Plan: Work up negative during last admission May need echo Check Lipids Start statin Needs reassess resumption of her dual antiplatelets based on her clinical condition Qualifiers: Transient cerebral ischemia type: other Qualified Code(s): 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
[2022-09-24] MEDS: PANTOPRAZOLE 40 MG VIAL IV SCH (20:42)
[2022-09-24 20:44] LABS: CHOL/HDL RATIO 2.8 (<4.4); CHOLESTEROL 108 mg/dL; HDL CHOLESTEROL 39 mg/dL; LDL CHOLESTEROL,CALCULATED 60 mg/dL; LDL/HDL RATIO 1.5 (<4.4); TRIGLYCERIDES 43 mg/dL; VLDL CHOLESTEROL 9 mg/dL
[2022-09-24 21:27] LABS: ESTIMATED AVERAGE GLUCOSE 120 mg/dL (70-100); HEMOGLOBIN A1c% 5.8 % (4.27-6.07)
[2022-09-24] MEDS: SODIUM CHLORIDE FLUSH 0.9% 10 ML SYRINGE IVP SCH (22:31)
[2022-09-24] MEDS: SODIUM CHLORIDE 0.9% 1,000 ML IV SCH (22:31)
[2022-09-25 00:44] LABS: BASOPHILS # (AUTO) 0.1 10^3/uL (0.0-0.1); BASOPHILS % (AUTO) 0.4 %; EOSINOPHILS # (AUTO) 0.2 10^3/uL (0.0-0.7); EOSINOPHILS % (AUTO) 1.7 %; HCT - HEMATOCRIT 31.6 % (37.0-47.0); HGB - HEMOGLOBIN 10.5 g/dL (12.0-16.0); LYMPHOCYTES # (AUTO) 1.2 10^3/uL (1.5-3.5); LYMPHOCYTES % (AUTO) 9.8 %; MEAN CORPUSCULAR HEMOGLOBIN 28.5 pg (27.0-31.0); MEAN CORPUSCULAR HGB CONC 33.2 g/dL (32.0-36.0); MEAN CORPUSCULAR VOLUME 85.9 fL (81.0-99.0); MEAN PLATELET VOLUME 9.7 fL (7.9-10.8); MONOCYTES # (AUTO) 0.7 10^3/uL (0.0-1.0); MONOCYTES % (AUTO) 5.9 %; NEUTROPHILS # (AUTO) 9.6 10^3/uL (1.5-6.6); NEUTROPHILS % (AUTO) 81.9 %; PLT - PLATELET COUNT 238 10^3/uL (130-450); RED BLOOD COUNT 3.68 10^6/uL (4.20-5.40); RED CELL DISTRIBUTION WIDTH 12.7 % (12.0-15.0); WHITE BLOOD COUNT 11.7 x10^3/uL (4.8-10.8)
[2022-09-25] MEDS ORDERED: SODIUM CHLORIDE 0.9% 500 ML IV ONE (01:16)
[2022-09-25] MEDS: SODIUM CHLORIDE 0.9% 1,000 ML IV SCH ×2 (06:24→19:58)
[2022-09-25] MEDS: LEVOTHYROXINE 25 MCG TABLET PO SCH (06:25)
[2022-09-25] MEDS: LEVOTHYROXINE 112 MCG TABLET PO SCH (06:25)
--- NOTE | 2022-09-25 08:38 | CONSULTATION NOTE ---
Referring Provider Name of Referring Provider:: ED/Medicine Consult Date: 09/25/22 Chief Complaint - Chief Complaint Chief Complaint: gi bleeding History of Present Illness - Admitted From Admitted From:: ED - History Obtained From Records Reviewed: yes History obtained from: patient, ED provider, daughter - History of Present Illness HPI Comment/Other: This is a very pleasant 87-year-old female who reports acute onset of loose bloody stools yesterday morning approximately 10 AM. Prior to presentation, the patient states she had 5 bowel movements. She had an additional bowel movement in the ED, and 1 on arrival to the floor.During her last bowel movement, the patient did feel lightheaded and have a syncopal episode. Upon return to bed, the patient was doing well and did not feel dizzy, or short of breath. The patient has been up to the commode since then without incident. She denies any associated abdominal pain. She has never had bleeding like this in the past. Notably, the patient was started on Plavix for a TIA approximately 1 week ago. Her last colonoscopy was in 2016, at which time she was noted to have diverticulosis and a single polyp. The patient's brother had colon cancer diagnosed in his 50s. At the time of my exam, the patient denies any chest pain, dizziness, or shortness of breath. 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: Ovarian cancer, Breast cancer : reports: Chronic bladder infection HEENT: reports: Chronic vision loss, Chronic hearing loss, Other Psych: reports: None, Anxiety Musculoskeletal: reports: Osteoarthritis Derm: reports: None MRSA Hx?: No - Past Surgical History General: reports: Cholecystectomy, Appendectomy, Colonoscopy Ortho: reports: Rotator cuff repair, Arthroscopic surgery /SENIOR ENERGY ANALYST: reports: Hysterectomy, Oophrectomy HEENT: reports: Cataracts - POLST Patient has POLST: No Meds/Allgy - Home Medications Home Medications: Ambulatory Orders Medication Instructions Recorded Confirmed Aspirin [Aspirin EC] 81 mg PO DAILY 10/01/20 09/24/22 Valsartan [Diovan] 80 mg PO DAILY 10/01/20 09/24/22 Clopidogrel [Plavix] 75 mg PO DAILY 30 Days #30 tablet 09/16/22 09/24/22 Levothyroxine Sodium [Synthroid] 137 mcg PO QDAC 09/25/22 09/25/22 hydroCHLOROthiazide [Hydrodiuril] 12.5 mg PO DAILY 09/25/22 09/25/22 - Allergies Allergies/Adverse Reactions: Allergies Allergy/AdvReac Type Severity Reaction Status Date / Time amoxicillin Allergy Rash Verified 09/24/22 17:54 nitrofurantoin Allergy Rash Verified 09/24/22 17:54 [From Macrobid] Penicillins Allergy Rash Verified 09/24/22 17:54 phenazopyridine Allergy Rash Verified 09/24/22 17:54 [From Pyridium] sulfamethoxazole Allergy Rash Verified 09/24/22 17:54 [From Bactrim] trimethoprim [From Bactrim] Allergy Rash Verified 09/24/22 17:54 Review of Systems - Constitutional Constitutional: reports: Other (A complete 10 point review of symptoms is otherwise negative except for that noted in HPI and PMH.) Exam - Vital Signs Vital Signs: Vital Signs x48h Temp Pulse Resp BP Pulse Ox 09/25/22 08:00 36.1 C L 80 14 109/57 L 96 09/25/22 04:45 36.5 C 79 20 119/57 L 95 09/25/22 01:55 81 114/59 L 09/25/22 00:40 90/49 L - Physical Exam Comments/Other: GEN: No acute distress, appears younger than stated age, alert and oriented HEENT: NCAT, MMM, EOMI NEURO: CN II-XII grossly intact, no obvious focal deficits CV: RRR, no murmer appreciated PULM: Nonlabored on room air ABD: soft, obese, non tender, no rebound or guarding CIRCULATORY: no clubbing, cyanosis, or edema SKIN: no lesions appreciated LYMPH: no obvious lymphadenopathy MSK: 4/4 strength in all extremities PSYCH: Affect is appropriate Conclusion and Plan - Lab Results Microbiology Results 09/24/22 20:10 Stool Occult Blood - Final Laboratory Results 09/25/22 07:21: Hgb 10.2 L 09/25/22 00:36: WBC 11.7 H, RBC 3.68 L, Hgb 10.5 L, Hct 31.6 L, MCV 85.9, MCH 28.5, MCHC 33.2, RDW 12.7, Plt Count 238, MPV 9.7, Neut # (Auto) 9.6 H, Lymph # (Auto) 1.2 L, [place] # (Auto) 0.7, Eos # (Auto) 0.2, Baso # (Auto) 0.1, Absolute Nucleated RBC 0.00, Nucleated RBC % 0.0 09/24/22 19:01: Blood Type B POSITIVE, Antibody Screen NEGATIVE 09/24/22 18:00: Estimat Average Glucose 120 H, Hemoglobin A1c % 5.8 09/24/22 18:00: Triglycerides 43, Cholesterol 108, LDL Cholesterol, Calc 60, VLDL Cholesterol 9, HDL Cholesterol 39 L, LDL/HDL Ratio 1.5, Cholesterol/HDL Ratio 2.8 09/24/22 18:00: Blood Type Recheck B POSITIVE 09/24/22 18:00: PT 12.3, INR 1.1 09/24/22 18:00: Sodium 131 L, Potassium 3.9, Chloride 95 L, Carbon Dioxide 28, Anion Gap 8.0, BUN 31 H, Creatinine 0.7, Estimated GFR (MDRD) 79 L, Glucose 204 H, Calcium 8.6, Total Bilirubin 0.4, AST 19, ALT 14, Alkaline Phosphatase 98, Total Protein 6.7, Albumin 3.7, Globulin 3.0, Albumin/Globulin Ratio 1.2 09/24/22 18:00: WBC 9.2, RBC 4.33, Hgb 12.2, Hct 37.0, MCV 85.5, MCH 28.2, MCHC 33.0, RDW 12.7, Plt Count 272, MPV 9.6, Neut # (Auto) 7.5 H, Lymph # (Auto) 1.2 L, [place] # (Auto) 0.4, Eos # (Auto) 0.1, Baso # (Auto) 0.0, Absolute Nucleated RBC 0.00, Nucleated RBC % 0.0 - Consultation Note Consultation Note: 87 y/o F with: 1. GI bleed: - suspected lower GI source - on ASA and Plavix (started 1 week ago for TIA) - 7 total BM's since onset of symptoms, none since 2300 last night - syncopal episode on toilet last night - VSS this AM - repeat hgb pending - if hgb stabalizes, vitals remain stable, plan for colonoscopy as outpatient - if hgb continues to drop, bleeding continues today, consider bowel prep and CE tomorrow as inpatient - recommend continued clear liquid diet at this time, when hgb stable ok to adat to regular - I spoke with the patient and her daughter at bedside and discussed the natural history of lower gi bleed (usually resolves spontenously with conservative management) and the low rate of success in identifying and treating bleeding with colonoscopy. Their questions were answered and they agree with the above plan. 2. Recent TIA, HTN, hypothyroidism - as per primary team - patient is demonstrating higher than average risk of bleeding with dual antiplatelet therapy Thank you for consulting me in the care of this patient. I will continue to follow closely. 1500 addendum Hgb stable No bloody BM since last night Will stop serial hgb If patient continues to do well, recommend adat to regular diet in AM and ok to d/c home. Follow up with me in clinic in 2 weeks. Plan for repeat CE as outpatient
[2022-09-25] MEDS ORDERED: LEVOTHYROXINE 125 MCG TABLET PO SCH (09:00)
[2022-09-25] MEDS ORDERED: LOSARTAN 50 MG TABLET PO SCH (09:00)
[2022-09-25] MEDS: SODIUM CHLORIDE FLUSH 0.9% 10 ML SYRINGE IVP SCH ×2 (09:02→19:58)
[2022-09-25] MEDS: PANTOPRAZOLE 40 MG VIAL IV SCH (09:02)
--- NOTE | 2022-09-25 11:15 | PHARMACY PROGRESS NOTE ---
- Best Possible Medication History Admit Date and Time: 09/24/222002 Processed by: Pharmacy Medication History completed: Yes Patient Interview: Pt unable to participate Secondary Source(s): Physician records, Pharmacy records, Insurance records As the person ultimately responsible for medication therapy, providers are able to order a medication from an existing home medication list in [facility] via the "Reconcile Routine" prior to Confirmation of that medication by product support manager. Such practice is discouraged except when the physician, in their clinical judgment, deems that a medical need exists for a medication without regard to previous use.
--- NOTE | 2022-09-25 15:10 | PROVIDER PROGRESS NOTE ---
Assessment/Plan - Problem List (1) GIB (gastrointestinal bleeding) Qualifiers: GI bleed type/associated pathology: unspecified gastrointestinal hemorrhage type Qualified Code(s): K92.2 - Gastrointestinal hemorrhage, unspecified Assessment/Plan: Patient has not had any further GI bleeding with minimal bowel movement since this morning Hemoglobin and hematocrit have been stable Vital signs also relatively stable No abdominal pain Discussed with general surgery, Dr. Finch has been instrumental in assistance, much appreciated She recommends if patient has no further bleeding and hemoglobin and hematocrit are stable tomorrow, can advance diet and outpatient colonoscopy in 2 weeks (2) HTN (hypertension) Qualifiers: Hypertension type: primary hypertension Qualified Code(s): I10 - Essential (primary) hypertension Assessment/Plan: Blood pressure this afternoon has been well regulated Given current concerns for GI bleed and recent syncope, will hold off on home blood pressure meds and continue to monitor BP (3) TIA (transient ischemic attack) Qualifiers: Transient cerebral ischemia type: other Qualified Code(s): 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 Assessment/Plan: Patient is status post TIA x2 10 days out from the last episode Was prescribed Plavix and aspirin which is typical is a 21-day treatment course However in the setting of GI bleed would be prudent to manage with single antiplatelet alone, evidence suggests good preventative results with aspirin 81 mg daily which I will recommend for patient until at least the GI bleeding can be fully assessed with colonoscopy In addition, continue to manage blood pressure as above Patient also should be on daily statin, will add - Current Meds Current Meds: Current Medications Generic Name Dose Route Start Last Admin Trade Name Freq PRN Reason Stop Dose Admin Sodium Chloride 1,000 mls @ 75 mls/hr 09/24/22 21:00 09/25/22 06:24 Normal Saline 0.9% IV 75 mls/hr .[id number] VONDA Administration Levothyroxine Sodium 112 mcg 09/25/22 07:00 09/25/22 06:25 Levothyroxine 112 Mcg Tablet PO 112 mcg QDAC VONDA Administration Levothyroxine Sodium 25 mcg 09/25/22 07:00 09/25/22 06:25 Levothyroxine 25 Mcg Tablet PO 25 mcg QDAC VONDA Administration Pantoprazole Sodium 40 mg 09/24/22 20:10 09/25/22 09:02 Pantoprazole 40 Mg Vial IV 40 mg DAILY VONDA Administration Sodium Chloride 10 ml 09/25/22 01:00 09/25/22 09:02 Sodium Chloride Flush 0.9% 10 Ml Syringe IVP 10 ml 0100,0900,1700 VONDA Administration - Lab Result Fish Bone Diagrams: 09/25/22 12:57 09/24/22 18:00 Subjective - Subjective Patient Reports: Feeling Better (No bleeding, no abdominal pain) Objective Vital Signs: Vital Signs - 24 hr 09/24/22 09/24/22 09/24/22 17:51 17:54 18:01 Temperature 36.5 C Heart Rate 108 H Heart Rate [ Brachial] Respiratory 17 17 16 Rate Blood Pressure 125/74 Blood Pressure [Left Brachial artery] O2 Saturation 98 09/24/22 09/24/22 09/24/22 18:49 19:43 20:19 Temperature Heart Rate 100 95 Heart Rate [ Brachial] Respiratory 19 16 18 Rate Blood Pressure 125/73 113/73 Blood Pressure [Left Brachial artery] O2 Saturation 100 98 09/24/22 09/24/22 09/25/22 20:43 21:08 00:30 Temperature 36.7 C 36.4 C L 36.3 C L Heart Rate 91 Heart Rate [ 94 79 Brachial] Respiratory 18 18 20 Rate Blood Pressure 113/68 Blood Pressure 136/80 H 85/50 L [Left Brachial artery] O2 Saturation 98 98 96 09/25/22 09/25/22 09/25/22 00:40 01:55 04:45 Temperature 36.5 C Heart Rate Heart Rate [ 81 79 Brachial] Respiratory 20 Rate Blood Pressure Blood Pressure 90/49 L 114/59 L 119/57 L [Left Brachial artery] O2 Saturation 95 09/25/22 09/25/22 08:00 11:45 Temperature 36.1 C L 36.6 C Heart Rate Heart Rate [ 80 81 Brachial] Respiratory 14 14 Rate Blood Pressure Blood Pressure 109/57 L 113/52 L [Left Brachial artery] O2 Saturation 96 96 Oxygen O2 Source Room air I&O (Last 24 Hrs): Intake and Output Totals x24h 09/23/22 09/24/22 09/25/22 23:59 23:59 23:59 Intake Total 100 1091.25 Output Total 780 Balance 100 311.25 General: Alert, Oriented x3, Cooperative HEENT: Atraumatic Neuro: Alert Cardiovascular: Regular rate, Normal S1, Normal S2 Abdomen: Normal bowel sounds, Soft, No tenderness Extremities: No clubbing, No cyanosis, No edema, Normal pulses Skin: No rashes, No significant lesion - Results Results: Laboratory Results WBC 11.7 x10^3/uL (4.8-10.8) H 09/25/22 00:36 RBC 3.68 10^6/uL (4.20-5.40) L 09/25/22 00:36 Hgb 9.9 g/dL (12.0-16.0) L 09/25/22 12:57 Hct 31.6 % (37.0-47.0) L 09/25/22 00:36 MCV 85.9 fL (81.0-99.0) 09/25/22 00:36 MCH 28.5 pg (27.0-31.0) 09/25/22 00:36 MCHC 33.2 g/dL (32.0-36.0) 09/25/22 00:36 RDW 12.7 % (12.0-15.0) 09/25/22 00:36 Plt Count 238 10^3/uL (130-450) 09/25/22 00:36 MPV 9.7 fL (7.9-10.8) 09/25/22 00:36 Neut # (Auto) 9.6 10^3/uL (1.5-6.6) H 09/25/22 00:36 Lymph # (Auto) 1.2 10^3/uL (1.5-3.5) L 09/25/22 00:36 [place] # (Auto) 0.7 10^3/uL (0.0-1.0) 09/25/22 00:36 Eos # (Auto) 0.2 10^3/uL (0.0-0.7) 09/25/22 00:36 Baso # (Auto) 0.1 10^3/uL (0.0-0.1) 09/25/22 00:36 Absolute Nucleated RBC 0.00 x10^3/uL 09/25/22 00:36 Nucleated RBC % 0.0 /100WBC 09/25/22 00:36 PT 12.3 secs (9.9-12.6) 09/24/22 18:00 INR 1.1 (0.8-1.2) 09/24/22 18:00 Sodium 131 mmol/L (135-145) L 09/24/22 18:00 Potassium 3.9 mmol/L (3.5-5.0) 09/24/22 18:00 Chloride 95 mmol/L (101-111) L 09/24/22 18:00 Carbon Dioxide 28 mmol/L (21-32) 09/24/22 18:00 Anion Gap 8.0 (6-13) 09/24/22 18:00 BUN 31 mg/dL (6-20) H 09/24/22 18:00 Creatinine 0.7 mg/dL (0.4-1.0) 09/24/22 18:00 Estimated GFR (MDRD) 79 (>89) L 09/24/22 18:00 Glucose 204 mg/dL (70-100) H 09/24/22 18:00 Estimat Average Glucose 120 mg/dL (70-100) H 09/24/22 18:00 Hemoglobin A1c % 5.8 % (4.27-6.07) 09/24/22 18:00 Calcium 8.6 mg/dL (8.5-10.3) 09/24/22 18:00 Total Bilirubin 0.4 mg/dL (0.2-1.0) 09/24/22 18:00 AST 19 IU/L (10-42) 09/24/22 18:00 ALT 14 IU/L (10-60) 09/24/22 18:00 Alkaline Phosphatase 98 IU/L (42-121) 09/24/22 18:00 Total Protein 6.7 g/dL (6.7-8.2) 09/24/22 18:00 Albumin 3.7 g/dL (3.2-5.5) 09/24/22 18:00 Globulin 3.0 g/dL (2.1-4.2) 09/24/22 18:00 Albumin/Globulin Ratio 1.2 (1.0-2.2) 09/24/22 18:00 Triglycerides 43 mg/dL (-149) 09/24/22 18:00 Cholesterol 108 mg/dL (-199) 09/24/22 18:00 LDL Cholesterol, Calc 60 mg/dL (-129) 09/24/22 18:00 VLDL Cholesterol 9 mg/dL 09/24/22 18:00 HDL Cholesterol 39 mg/dL (60-) L 09/24/22 18:00 LDL/HDL Ratio 1.5 (<4.4) 09/24/22 18:00 Cholesterol/HDL Ratio 2.8 (<4.4) 09/24/22 18:00 Blood Type B POSITIVE 09/24/22 19:01 Blood Type Recheck B POSITIVE 09/24/22 18:00 Antibody Screen NEGATIVE 09/24/22 19:01 - Procedures Procedures: Procedures EXCISION OF RIGHT BREAST, OPEN APPROACH (10/08/20) EXCISION OF RIGHT BREAST, OPEN APPROACH, DIAGNOSTIC (10/08/20) Sepsis Event Note (H) - Evaluation Current Stage of Sepsis: Ruled out ABX Reporting Has patient been on IV antibiotics over the past 48 hours?: No Current Medications - Current Medications Current Medications: Active Medications Generic Name Dose Route Start Last Admin Trade Name Freq PRN Reason Stop Dose Admin Acetaminophen 650 mg 09/24/22 20:03 Acetaminophen 325 Mg Tablet PO Q4HR PRN Pain 1 to 4, or Fever Sodium Chloride 1,000 mls @ 75 mls/hr 09/24/22 21:00 09/25/22 06:24 Normal Saline 0.9% IV 75 mls/hr .[id number] VONDA Administration Levothyroxine Sodium 112 mcg 09/25/22 07:00 09/25/22 06:25 Levothyroxine 112 Mcg Tablet PO 112 mcg QDAC VONDA Administration Levothyroxine Sodium 25 mcg 09/25/22 07:00 09/25/22 06:25 Levothyroxine 25 Mcg Tablet PO 25 mcg QDAC VONDA Administration Ondansetron HCl 4 mg 09/24/22 20:03 Ondansetron 4 Mg/2 Ml Vial IVP Q6HR PRN Nausea / Vomiting Pantoprazole Sodium 40 mg 09/24/22 20:10 09/25/22 09:02 Pantoprazole 40 Mg Vial IV 40 mg DAILY VONDA Administration Sodium Chloride 10 ml 09/24/22 20:03 Sodium Chloride Flush 0.9% 10 Ml Syringe IVP PRN PRN NEEDED PER PROVIDER ORDERS Sodium Chloride 10 ml 09/25/22 01:00 09/25/22 09:02 Sodium Chloride Flush 0.9% 10 Ml Syringe IVP 10 ml 0100,0900,1700 VONDA Administration Aspirin [Aspirin EC] 81 mg PO DAILY 10/01/20 Valsartan [Diovan] 80 mg PO DAILY 10/01/20 Levothyroxine Sodium [Synthroid] 137 mcg PO QDAC 09/25/22 hydroCHLOROthiazide [Hydrodiuril] 12.5 mg PO DAILY 09/25/22
[2022-09-25] MEDS ORDERED: CARBOXYMETHYLCELLULOSE OPHTH DROPS EACHEYE PRN (21:58)
[2022-09-26] MEDS: SODIUM CHLORIDE FLUSH 0.9% 10 ML SYRINGE IVP SCH ×3 (00:45→17:38)
[2022-09-26 05:12] LABS: BASOPHILS # (AUTO) 0.1 10^3/uL (0.0-0.1); BASOPHILS % (AUTO) 1.3 %; EOSINOPHILS # (AUTO) 0.4 10^3/uL (0.0-0.7); EOSINOPHILS % (AUTO) 7.3 %; HCT - HEMATOCRIT 26.9 % (37.0-47.0); HGB - HEMOGLOBIN 8.7 g/dL (12.0-16.0); LYMPHOCYTES # (AUTO) 1.6 10^3/uL (1.5-3.5); LYMPHOCYTES % (AUTO) 29.7 %; MEAN CORPUSCULAR HEMOGLOBIN 28.5 pg (27.0-31.0); MEAN CORPUSCULAR HGB CONC 32.3 g/dL (32.0-36.0); MEAN CORPUSCULAR VOLUME 88.2 fL (81.0-99.0); MONOCYTES # (AUTO) 0.4 10^3/uL (0.0-1.0); MONOCYTES % (AUTO) 6.8 %; NEUTROPHILS # (AUTO) 2.9 10^3/uL (1.5-6.6); NEUTROPHILS % (AUTO) 54.7 %; PLT - PLATELET COUNT 194 10^3/uL (130-450); RED BLOOD COUNT 3.05 10^6/uL (4.20-5.40); RED CELL DISTRIBUTION WIDTH 13.2 % (12.0-15.0); WHITE BLOOD COUNT 5.3 x10^3/uL (4.8-10.8)
[2022-09-26 05:22] LABS: ALBUMIN 2.7 g/dL (3.2-5.5); ALBUMIN/GLOBULIN RATIO 1.3 (1.0-2.2); BILIRUBIN,TOTAL 0.4 mg/dL (0.2-1.0); CALCIUM 7.6 mg/dL (8.5-10.3); CREATININE 0.6 mg/dL (0.4-1.0); POTASSIUM 3.5 mmol/L (3.5-5.0); TOTAL PROTEIN 4.8 g/dL (6.7-8.2)
[2022-09-26] MEDS: LEVOTHYROXINE 112 MCG TABLET PO SCH (06:23)
[2022-09-26] MEDS: LEVOTHYROXINE 25 MCG TABLET PO SCH (06:53)
[2022-09-26] MEDS: PANTOPRAZOLE 40 MG VIAL IV SCH (09:24)
[2022-09-26] MEDS: SODIUM CHLORIDE 0.9% 1,000 ML IV SCH ×2 (09:24→22:33)
--- NOTE | 2022-09-26 18:01 | PROVIDER PROGRESS NOTE ---
Assessment/Plan - Problem List (1) GIB (gastrointestinal bleeding) Qualifiers: GI bleed type/associated pathology: unspecified gastrointestinal hemorrhage type Qualified Code(s): K92.2 - Gastrointestinal hemorrhage, unspecified Assessment/Plan: Patient had been improving however late yesterday she had another bowel movement with blood. As such her hemoglobin has dropped to 8.7 this morning She has been relatively asymptomatic since then however surgery has been reconsulted and we have been recommended to resume a clear liquid diet Pending surgical consult will anticipate possible inpatient colonoscopy (2) HTN (hypertension) Qualifiers: Hypertension type: primary hypertension Qualified Code(s): I10 - Essential (primary) hypertension Assessment/Plan: Blood pressure this afternoon has been well regulated Given current concerns for GI bleed and recent syncope, will hold off on home blood pressure meds and continue to monitor BP (3) TIA (transient ischemic attack) Qualifiers: Transient cerebral ischemia type: other Qualified Code(s): 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 Assessment/Plan: Patient is status post TIA x2 ~10 days out from the last episode Was prescribed Plavix and aspirin which is typical is a 21-day treatment course However in the setting of GI bleed would be prudent to manage with single antiplatelet alone, evidence suggests good preventative results with aspirin 81 mg daily which I will recommend for patient until at least the GI bleeding can be fully assessed with colonoscopy In addition, continue to manage blood pressure as above Patient also should be on daily statin, will add - Current Meds Current Meds: Current Medications Generic Name Dose Route Start Last Admin Trade Name Freq PRN Reason Stop Dose Admin Carboxymethylcellulose 1 drops 09/25/22 21:58 09/25/22 22:40 Carboxymethylcellulose Ophth Drops EACHEYE 1 drops PRN PRN Administration Dry Eye Sodium Chloride 1,000 mls @ 75 mls/hr 09/24/22 21:00 09/26/22 14:19 Normal Saline 0.9% IV 75 mls/hr .[id number] VONDA Infusion Levothyroxine Sodium 112 mcg 09/25/22 07:00 09/26/22 06:23 Levothyroxine 112 Mcg Tablet PO 112 mcg QDAC VONDA Administration Levothyroxine Sodium 25 mcg 09/25/22 07:00 09/26/22 06:53 Levothyroxine 25 Mcg Tablet PO 25 mcg QDAC VONDA Administration Sodium Chloride 10 ml 09/24/22 20:03 09/26/22 09:24 Sodium Chloride Flush 0.9% 10 Ml Syringe IVP 10 ml PRN PRN Administration NEEDED PER PROVIDER ORDERS Sodium Chloride 10 ml 09/25/22 01:00 09/26/22 17:38 Sodium Chloride Flush 0.9% 10 Ml Syringe IVP Not Given 0100,0900,1700 VONDA - Lab Result Lab results reviewed: Yes Fish Bone Diagrams: 09/26/22 04:39 09/26/22 04:39 Subjective - Subjective Patient Reports: Feeling Better, No Complaints Objective Vital Signs: Vital Signs - 24 hr 09/25/22 09/26/22 09/26/22 20:00 00:00 04:00 Temperature 36.4 C L 36.4 C L 36.8 C Heart Rate [ 77 81 80 Brachial] Respiratory 16 18 18 Rate Blood Pressure 110/46 L 108/53 L 98/47 L [Left Brachial artery] Blood Pressure 110/50 L [Right Brachial artery] O2 Saturation 96 95 95 09/26/22 09/26/22 09/26/22 08:00 12:39 16:00 Temperature 36.9 C 36.2 C L 36.4 C L Heart Rate [ 76 74 89 Brachial] Respiratory 20 18 18 Rate Blood Pressure 132/63 H 108/57 L 117/70 [Left Brachial artery] Blood Pressure [Right Brachial artery] O2 Saturation 95 97 96 Oxygen O2 Source Room air I&O (Last 24 Hrs): Intake and Output Totals x24h 09/24/22 09/25/22 09/26/22 23:59 23:59 23:59 Intake Total 100 3197.50 3952.50 Output Total 2330 4050 Balance 100 867.50 -97.50 General: Alert, Oriented x3 HEENT: Atraumatic, EOMI Neuro: Alert, Oriented Times 3 Cardiovascular: Regular rate, Normal S1, Normal S2 Respiratory: Chest non-tender, No respiratory distress, Breath sounds nml Abdomen: Normal bowel sounds Extremities: No clubbing, No cyanosis, No edema Skin: No rashes, No breakdown, No significant lesion - Results Results: Laboratory Results WBC 5.3 x10^3/uL (4.8-10.8) 09/26/22 04:39 RBC 3.05 10^6/uL (4.20-5.40) L 09/26/22 04:39 Hgb 8.7 g/dL (12.0-16.0) L 09/26/22 04:39 Hct 26.9 % (37.0-47.0) L 09/26/22 04:39 MCV 88.2 fL (81.0-99.0) 09/26/22 04:39 MCH 28.5 pg (27.0-31.0) 09/26/22 04:39 MCHC 32.3 g/dL (32.0-36.0) 09/26/22 04:39 RDW 13.2 % (12.0-15.0) 09/26/22 04:39 Plt Count 194 10^3/uL (130-450) 09/26/22 04:39 MPV 10.0 fL (7.9-10.8) 09/26/22 04:39 Neut # (Auto) 2.9 10^3/uL (1.5-6.6) 09/26/22 04:39 Lymph # (Auto) 1.6 10^3/uL (1.5-3.5) 09/26/22 04:39 [place] # (Auto) 0.4 10^3/uL (0.0-1.0) 09/26/22 04:39 Eos # (Auto) 0.4 10^3/uL (0.0-0.7) 09/26/22 04:39 Baso # (Auto) 0.1 10^3/uL (0.0-0.1) 09/26/22 04:39 Absolute Nucleated RBC 0.00 x10^3/uL 09/26/22 04:39 Nucleated RBC % 0.0 /100WBC 09/26/22 04:39 PT 12.3 secs (9.9-12.6) 09/24/22 18:00 INR 1.1 (0.8-1.2) 09/24/22 18:00 Sodium 139 mmol/L (135-145) 09/26/22 04:39 Potassium 3.5 mmol/L (3.5-5.0) 09/26/22 04:39 Chloride 106 mmol/L (101-111) 09/26/22 04:39 Carbon Dioxide 26 mmol/L (21-32) 09/26/22 04:39 Anion Gap 7.0 (6-13) 09/26/22 04:39 BUN 20 mg/dL (6-20) 09/26/22 04:39 Creatinine 0.6 mg/dL (0.4-1.0) 09/26/22 04:39 Estimated GFR (MDRD) 95 (>89) 09/26/22 04:39 Glucose 90 mg/dL (70-100) 09/26/22 04:39 Estimat Average Glucose 120 mg/dL (70-100) H 09/24/22 18:00 Hemoglobin A1c % 5.8 % (4.27-6.07) 09/24/22 18:00 Calcium 7.6 mg/dL (8.5-10.3) L 09/26/22 04:39 Total Bilirubin 0.4 mg/dL (0.2-1.0) 09/26/22 04:39 AST 14 IU/L (10-42) 09/26/22 04:39 ALT 12 IU/L (10-60) 09/26/22 04:39 Alkaline Phosphatase 63 IU/L (42-121) 09/26/22 04:39 Total Protein 4.8 g/dL (6.7-8.2) L 09/26/22 04:39 Albumin 2.7 g/dL (3.2-5.5) L 09/26/22 04:39 Globulin 2.1 g/dL (2.1-4.2) 09/26/22 04:39 Albumin/Globulin Ratio 1.3 (1.0-2.2) 09/26/22 04:39 Triglycerides 43 mg/dL (-149) 09/24/22 18:00 Cholesterol 108 mg/dL (-199) 09/24/22 18:00 LDL Cholesterol, Calc 60 mg/dL (-129) 09/24/22 18:00 VLDL Cholesterol 9 mg/dL 09/24/22 18:00 HDL Cholesterol 39 mg/dL (60-) L 09/24/22 18:00 LDL/HDL Ratio 1.5 (<4.4) 09/24/22 18:00 Cholesterol/HDL Ratio 2.8 (<4.4) 09/24/22 18:00 Blood Type B POSITIVE 09/24/22 19:01 Blood Type Recheck B POSITIVE 09/24/22 18:00 Antibody Screen NEGATIVE 09/24/22 19:01 - Procedures Procedures: Procedures EXCISION OF RIGHT BREAST, OPEN APPROACH (10/08/20) EXCISION OF RIGHT BREAST, OPEN APPROACH, DIAGNOSTIC (10/08/20) Sepsis Event Note (H) - Evaluation Current Stage of Sepsis: Ruled out ABX Reporting Has patient been on IV antibiotics over the past 48 hours?: No
[2022-09-26] MEDS: ATORVASTATIN 40 MG TABLET PO SCH (20:32)
[2022-09-27] MEDS: SODIUM CHLORIDE FLUSH 0.9% 10 ML SYRINGE IVP SCH ×3 (00:16→21:13)
[2022-09-27 05:30] LABS: BASOPHILS # (AUTO) 0.1 10^3/uL (0.0-0.1); BASOPHILS % (AUTO) 1.1 %; EOSINOPHILS # (AUTO) 0.5 10^3/uL (0.0-0.7); EOSINOPHILS % (AUTO) 7.6 %; HCT - HEMATOCRIT 28.7 % (37.0-47.0); HGB - HEMOGLOBIN 9.4 g/dL (12.0-16.0); LYMPHOCYTES # (AUTO) 1.3 10^3/uL (1.5-3.5); LYMPHOCYTES % (AUTO) 19.4 %; MEAN CORPUSCULAR HEMOGLOBIN 28.5 pg (27.0-31.0); MEAN CORPUSCULAR HGB CONC 32.8 g/dL (32.0-36.0); MONOCYTES # (AUTO) 0.5 10^3/uL (0.0-1.0); MONOCYTES % (AUTO) 7.6 %; NEUTROPHILS # (AUTO) 4.2 10^3/uL (1.5-6.6); PLT - PLATELET COUNT 215 10^3/uL (130-450); RED CELL DISTRIBUTION WIDTH 12.8 % (12.0-15.0); WHITE BLOOD COUNT 6.6 x10^3/uL (4.8-10.8)
[2022-09-27 05:44] LABS: ALBUMIN/GLOBULIN RATIO 1.3 (1.0-2.2); BILIRUBIN,TOTAL 0.9 mg/dL (0.2-1.0); CALCIUM 7.7 mg/dL (8.5-10.3); CREATININE 0.5 mg/dL (0.4-1.0); TOTAL PROTEIN 5.3 g/dL (6.7-8.2)
[2022-09-27] MEDS: LEVOTHYROXINE 112 MCG TABLET PO SCH (06:08)
[2022-09-27] MEDS: PANTOPRAZOLE 40 MG VIAL IVP SCH (06:09)
[2022-09-27] MEDS: LEVOTHYROXINE 25 MCG TABLET PO SCH (06:09)
[2022-09-27] MEDS: SODIUM CHLORIDE 0.9% 1,000 ML IV SCH (12:40)
--- NOTE | 2022-09-27 14:06 | PROVIDER PROGRESS NOTE ---
Subjective - Subjective Pt reports feeling: Improved (feels well. would like to eat.) Objective - Vital Signs/Intake & Output Reviewed Vital Signs: Yes Vital Signs: Vital Signs x48h Temp Pulse Resp BP Pulse Ox 09/27/22 09:14 118 H 135/77 H 09/27/22 09:12 82 120/71 09/27/22 09:10 77 101/51 L 09/27/22 07:49 36.8 C 74 16 95/53 L 95 Intake & Output: Intake & Output 09/24/22 09/25/22 09/26/22 09/27/22 23:59 23:59 23:59 23:59 Intake Total 100 3197.50 5380.00 2070 Output Total 2330 4050 2750 Balance 100 867.50 1330.00 -680 - Objective General Appearance: positive: No acute distress, Alert Eyes Bilateral: positive: PERRL, EOMI, No scleral icterus Respiratory: positive: No respiratory distress Abdomen: positive: No distention Neurologic/Psychiatric: positive: Oriented x3 - Lab Results Fish Bones: 09/27/22 04:29 09/27/22 04:29 Other Labs: Lab Results x24hrs 09/27/22 09/27/22 Range/Units 04:29 04:29 WBC 6.6 (4.8-10.8) x10^3/uL RBC 3.30 L (4.20-5.40) 10^6/uL Hgb 9.4 L (12.0-16.0) g/dL Hct 28.7 L (37.0-47.0) % MCV 87.0 (81.0-99.0) fL MCH 28.5 (27.0-31.0) pg MCHC 32.8 (32.0-36.0) g/dL RDW 12.8 (12.0-15.0) % Plt Count 215 (130-450) 10^3/uL MPV 10.0 (7.9-10.8) fL Neut # (Auto) 4.2 (1.5-6.6) 10^3/uL Lymph # (Auto) 1.3 L (1.5-3.5) 10^3/uL [place] # (Auto) 0.5 (0.0-1.0) 10^3/uL Eos # (Auto) 0.5 (0.0-0.7) 10^3/uL Baso # (Auto) 0.1 (0.0-0.1) 10^3/uL Absolute Nucleated RBC 0.00 x10^3/uL Nucleated RBC % 0.0 /100WBC Sodium 136 (135-145) mmol/L Potassium 3.0 L (3.5-5.0) mmol/L Chloride 106 (101-111) mmol/L Carbon Dioxide 25 (21-32) mmol/L Anion Gap 5.0 L (6-13) BUN 21 H (6-20) mg/dL Creatinine 0.5 (0.4-1.0) mg/dL Estimated GFR (MDRD) 117 (>89) Glucose 101 H (70-100) mg/dL Calcium 7.7 L (8.5-10.3) mg/dL Total Bilirubin 0.9 (0.2-1.0) mg/dL AST 18 (10-42) IU/L ALT 15 (10-60) IU/L Alkaline Phosphatase 72 (42-121) IU/L Total Protein 5.3 L (6.7-8.2) g/dL Albumin 3.0 L (3.2-5.5) g/dL Globulin 2.3 (2.1-4.2) g/dL Albumin/Globulin Ratio 1.3 (1.0-2.2) Sepsis Event Note (H) - Evaluation Current Stage of Sepsis: Ruled out Assessment/Plan - Problem List (1) GIB (gastrointestinal bleeding) Impression: agree with care and plan. no recent active bleeding. H/H up this am without transfusion. she had a colonoscopy in 2017 showing diverticulosis. a 7 mm polyp was removed. path hyperplastic and not an adenoma. In 2009 a 7 mm colon polyp was removed. diffuse diverticulosis present right and left colon. recent TIA with impaired speech. we discussed she is at increased risk of a major adverse cardiovascular event ie heart attack, stroke, for 9 months even with "low risk" procedures. we also discussed the literature does not support colon cancer screening beyond age 85. agree with restarting asa. we also discussed safer to be on aspirin and accept some bleeding and transfusion that risk another TIA/ stroke ok to slowly advance diet. Qualifiers: GI bleed type/associated pathology: unspecified gastrointestinal hemorrhage type Qualified Code(s): K92.2 - Gastrointestinal hemorrhage, unspecified
--- NOTE | 2022-09-27 17:42 | PROVIDER PROGRESS NOTE ---
Assessment/Plan - Problem List (1) GIB (gastrointestinal bleeding) Qualifiers: GI bleed type/associated pathology: unspecified gastrointestinal hemorrhage type Qualified Code(s): K92.2 - Gastrointestinal hemorrhage, unspecified Assessment/Plan: Patient with bowel movement with dark stool but no active bleeding Hemoglobin and hematocrit trended up this morning Vital signs are stable Discussed patient's case with Dr. Green, general surgery, appreciate assistance He does not recommend colonoscopy at this time given the risk-benefit ratio given her recent TIA and apparent cessation of bleeding We will advance diet to mechanical soft (2) HTN (hypertension) Qualifiers: Hypertension type: primary hypertension Qualified Code(s): I10 - Essential (primary) hypertension Assessment/Plan: Blood pressure continues to trend low We will hold off on home hypertensive meds (3) TIA (transient ischemic attack) Qualifiers: Transient cerebral ischemia type: other Qualified Code(s): 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 Assessment/Plan: Patient is status post TIA x2 ~10 days out from the last episode Was prescribed Plavix and aspirin which is typical is a 21-day treatment course However in the setting of GI bleed would be prudent to manage with single antiplatelet alone, evidence suggests good preventative results with aspirin 81 mg daily which I will recommend for patient until at least the GI bleeding can be fully assessed with colonoscopy In addition, continue to manage blood pressure as above Continue statin - Current Meds Current Meds: Current Medications Generic Name Dose Route Start Last Admin Trade Name Freq PRN Reason Stop Dose Admin Atorvastatin Calcium 40 mg 09/26/22 21:00 09/26/22 20:32 Atorvastatin 40 Mg Tablet PO 40 mg QPM VONDA Administration Carboxymethylcellulose 1 drops 09/25/22 21:58 09/25/22 22:40 Carboxymethylcellulose Ophth Drops EACHEYE 1 drops PRN PRN Administration Dry Eye Sodium Chloride 1,000 mls @ 75 mls/hr 09/24/22 21:00 09/27/22 12:40 Normal Saline 0.9% IV 75 mls/hr .[id number] VONDA Administration Levothyroxine Sodium 112 mcg 09/25/22 07:00 09/27/22 06:08 Levothyroxine 112 Mcg Tablet PO 112 mcg QDAC VONDA Administration Levothyroxine Sodium 25 mcg 09/25/22 07:00 09/27/22 06:09 Levothyroxine 25 Mcg Tablet PO 25 mcg QDAC VONDA Administration Pantoprazole Sodium 40 mg 09/27/22 07:00 09/27/22 06:09 Pantoprazole 40 Mg Vial IVP 40 mg QDAC VONDA Administration Sodium Chloride 10 ml 09/24/22 20:03 09/26/22 09:24 Sodium Chloride Flush 0.9% 10 Ml Syringe IVP 10 ml PRN PRN Administration NEEDED PER PROVIDER ORDERS Sodium Chloride 10 ml 09/25/22 01:00 09/27/22 09:45 Sodium Chloride Flush 0.9% 10 Ml Syringe IVP Not Given 0100,0900,1700 VONDA - Lab Result Lab results reviewed: Yes Fish Bone Diagrams: 09/27/22 04:29 09/27/22 04:29 - Additional Planning My Orders: My Active Orders 09/26/22 21:00 Atorvastatin [Lipitor] 40 mg PO QPM 09/27/22 Dinner Soft Mechanical Diet [DIET] Subjective - Subjective Patient Reports: Feeling Better Objective Vital Signs: Vital Signs - 24 hr 09/26/22 09/26/22 09/27/22 20:00 23:19 05:00 Temperature 36.3 C L 36.4 C L 36.6 C Heart Rate [ 88 90 76 Brachial] Respiratory 18 16 15 Rate Blood Pressure 120/72 122/62 89/46 L [Left Brachial artery] Blood Pressure 102/57 L [Right Brachial artery] O2 Saturation 96 94 98 09/27/22 09/27/22 09/27/22 07:49 09:10 09:12 Temperature 36.8 C Heart Rate [ 74 77 82 Brachial] Respiratory 16 Rate Blood Pressure 95/53 L 101/51 L 120/71 [Left Brachial artery] Blood Pressure [Right Brachial artery] O2 Saturation 95 09/27/22 09/27/22 09/27/22 09:14 14:11 17:33 Temperature 36.3 C L Heart Rate [ 118 H 91 104 H Brachial] Respiratory 19 16 Rate Blood Pressure 135/77 H 110/74 [Left Brachial artery] Blood Pressure 112/69 [Right Brachial artery] O2 Saturation 96 98 Oxygen O2 Source Room air I&O (Last 24 Hrs): Intake and Output Totals x24h 09/25/22 09/26/22 09/27/22 23:59 23:59 23:59 Intake Total 3197.50 5380.00 2610 Output Total 2330 4050 3450 Balance 867.50 1330.00 -840 General: Alert, Oriented x3, Cooperative HEENT: Atraumatic Neuro: Alert, Disoriented, Oriented Times 3 Cardiovascular: Regular rate, Normal S1, Normal S2 Respiratory: Chest non-tender, No respiratory distress, Breath sounds nml Abdomen: Normal bowel sounds Extremities: No clubbing, No cyanosis, No edema Skin: No rashes - Results Results: Laboratory Results WBC 6.6 x10^3/uL (4.8-10.8) 09/27/22 04: RBC 3.30 10^6/uL (4.20-5.40) L 09/27/22 04: Hgb 9.4 g/dL (12.0-16.0) L 09/27/22 04: Hct 28.7 % (37.0-47.0) L 09/27/22 04: MCV 87.0 fL (81.0-99.0) 09/27/22 04:29 MCH 28.5 pg (27.0-31.0) 09/27/22 04: MCHC 32.8 g/dL (32.0-36.0) 09/27/22 04: RDW 12.8 % (12.0-15.0) 09/27/22 04:29 Plt Count 215 10^3/uL (130-450) 09/27/22 04: MPV 10.0 fL (7.9-10.8) 09/27/22 04: Neut # (Auto) 4.2 10^3/uL (1.5-6.6) 09/27/22 04:29 Lymph # (Auto) 1.3 10^3/uL (1.5-3.5) L 09/27/22 04:29 Archer # (Auto) 0.5 10^3/uL (0.0-1.0) 09/27/22 04:29 Eos # (Auto) 0.5 10^3/uL (0.0-0.7) 09/27/22 04:29 Baso # (Auto) 0.1 10^3/uL (0.0-0.1) 09/27/22 04:29 Absolute Nucleated RBC 0.00 x10^3/uL 09/27/22 04:29 Nucleated RBC % 0.0 /100WBC 09/27/22 04:29 PT 12.3 secs (9.9-12.6) 09/24/22 18:00 INR 1.1 (0.8-1.2) 09/24/22 18:00 Sodium 136 mmol/L (135-145) 09/27/22 04:29 Potassium 3.0 mmol/L (3.5-5.0) L 09/27/22 04:29 Chloride 106 mmol/L (101-111) 09/27/22 04:29 Carbon Dioxide 25 mmol/L (21-32) 09/27/22 04:29 Anion Gap 5.0 (6-13) L 09/27/22 04:29 BUN 21 mg/dL (6-20) H 09/27/22 04:29 Creatinine 0.5 mg/dL (0.4-1.0) 09/27/22 04:29 Estimated GFR (MDRD) 117 (>89) 09/27/22 04:29 Glucose 101 mg/dL (70-100) H 09/27/22 04:29 Estimat Average Glucose 120 mg/dL (70-100) H 09/24/22 18:00 Hemoglobin A1c % 5.8 % (4.27-6.07) 09/24/22 18:00 Calcium 7.7 mg/dL (8.5-10.3) L 09/27/22 04:29 Total Bilirubin 0.9 mg/dL (0.2-1.0) 09/27/22 04:29 AST 18 IU/L (10-42) 09/27/22 04:29 ALT 15 IU/L (10-60) 09/27/22 04:29 Alkaline Phosphatase 72 IU/L (42-121) 09/27/22 04:29 Total Protein 5.3 g/dL (6.7-8.2) L 09/27/22 04:29 Albumin 3.0 g/dL (3.2-5.5) L 09/27/22 04:29 Globulin 2.3 g/dL (2.1-4.2) 09/27/22 04:29 Albumin/Globulin Ratio 1.3 (1.0-2.2) 09/27/22 04:29 Triglycerides 43 mg/dL (-149) 09/24/22 18:00 Cholesterol 108 mg/dL (-199) 09/24/22 18:00 LDL Cholesterol, Calc 60 mg/dL (-129) 09/24/22 18:00 VLDL Cholesterol 9 mg/dL 09/24/22 18:00 HDL Cholesterol 39 mg/dL (60-) L 09/24/22 18:00 LDL/HDL Ratio 1.5 (<4.4) 09/24/22 18:00 Cholesterol/HDL Ratio 2.8 (<4.4) 09/24/22 18:00 Blood Type B POSITIVE 09/24/22 19:01 Blood Type Recheck B POSITIVE 09/24/22 18:00 Antibody Screen NEGATIVE 09/24/22 19:01 - Procedures Procedures: Procedures EXCISION OF RIGHT BREAST, OPEN APPROACH (10/08/20) EXCISION OF RIGHT BREAST, OPEN APPROACH, DIAGNOSTIC (10/08/20) Sepsis Event Note (H) - Evaluation Current Stage of Sepsis: Ruled out ABX Reporting Has patient been on IV antibiotics over the past 48 hours?: No
[2022-09-27] MEDS: ATORVASTATIN 40 MG TABLET PO SCH (21:12)
[2022-09-28] MEDS: SODIUM CHLORIDE FLUSH 0.9% 10 ML SYRINGE IVP SCH (02:30)
[2022-09-28] MEDS: SODIUM CHLORIDE 0.9% 1,000 ML IV SCH (04:00)
[2022-09-28 05:40] LABS: BASOPHILS # (AUTO) 0.1 10^3/uL (0.0-0.1); BASOPHILS % (AUTO) 0.6 %; EOSINOPHILS # (AUTO) 0.5 10^3/uL (0.0-0.7); EOSINOPHILS % (AUTO) 6.2 %; HCT - HEMATOCRIT 27.9 % (37.0-47.0); HGB - HEMOGLOBIN 9.2 g/dL (12.0-16.0); LYMPHOCYTES # (AUTO) 1.4 10^3/uL (1.5-3.5); LYMPHOCYTES % (AUTO) 16.7 %; MEAN CORPUSCULAR HEMOGLOBIN 28.4 pg (27.0-31.0); MEAN CORPUSCULAR VOLUME 86.1 fL (81.0-99.0); MONOCYTES # (AUTO) 0.5 10^3/uL (0.0-1.0); MONOCYTES % (AUTO) 6.2 %; NEUTROPHILS # (AUTO) 5.8 10^3/uL (1.5-6.6); NEUTROPHILS % (AUTO) 69.9 %; PLT - PLATELET COUNT 233 10^3/uL (130-450); RED BLOOD COUNT 3.24 10^6/uL (4.20-5.40); RED CELL DISTRIBUTION WIDTH 12.9 % (12.0-15.0); WHITE BLOOD COUNT 8.3 x10^3/uL (4.8-10.8)
[2022-09-28 05:57] LABS: ALBUMIN 2.9 g/dL (3.2-5.5); ALBUMIN/GLOBULIN RATIO 1.4 (1.0-2.2); BILIRUBIN,TOTAL 0.7 mg/dL (0.2-1.0); CALCIUM 7.8 mg/dL (8.5-10.3); CREATININE 0.5 mg/dL (0.4-1.0)
[2022-09-28] MEDS: PANTOPRAZOLE 40 MG VIAL IVP SCH (06:45)
[2022-09-28] MEDS: LEVOTHYROXINE 25 MCG TABLET PO SCH (06:46)
[2022-09-28] MEDS: LEVOTHYROXINE 112 MCG TABLET PO SCH (06:46)
[2022-09-28 07:50] VITALS: BP 118/67
[2022-09-28] MEDS ORDERED: POTASSIUM CHLORIDE 20 MEQ TABLET PO ONE (09:46)
--- NOTE | 2022-09-28 12:12 | Discharge Plan ---
Discharge Plan Problem Reviewed?: Yes Disposition: Home, Self Care Condition: Stable Prescriptions: Atorvastatin [Lipitor] 40 mg PO QPM #30 tab Diet: Cardiac Instruction Topics: Bleeding Gastrointestinal, Diverticulosis Diverticulitis Plan of Treatment: Due to your blood in the stool you were admitted for a presumed gastrointestinal bleed. This was probably exacerbated by the Plavix you were recently started on after your TIA. Fortunately, your bleeding seems to have resolved and your hemoglobin and hematocrit levels have stabilized. In time, they will probably continue to increase to a normal level as long as there is no further bleeding. I am recommending you discontinue Plavix in order to reduce the risk of a GI bleed. While this medication is instrumental in reducing the risk of stroke, you can also achieve this with aspirin to a similar stroke risk reduction with a lower risk of gastrointestinal bleeding. At some point if you no longer have any further bleeding, you could consider starting Plavix again instead of Aspirin. I am going to recommend you start a cholesterol medication for which I have sent a prescription. Please follow-up with your primary care physician. You may need to restart your blood pressure medications that you have not been taking here because the blood pressure was low. Please monitor your blood pressure at home and communicate these results to your primary care physician when able to. In addition, Dr Finch, the surgeon you saw in the hospital, would like you to follow up with her in 2 weeks. No Smoking: If you smoke, Please STOP! Call for help. Follow-up with: Jair Eckert MD [Primary Care Provider] -
--- NOTE | 2022-09-28 16:03 | DISCHARGE SUMMARY ---
"Discharge Summary Admit Date: 09/24/22 Discharge Date: 09/28/22 Discharging Provider: Dr Aly Ye Code Status: Attempt Resuscitation Condition at Discharge: Stable Discharge Disposition: 01 Home, Self Care - DIAGNOSES Admission Diagnoses: GI bleed Hypertension Elevated glucose level TIA Discharge Diagnoses with Status of Each Condition: GI bleedimproving Hypertensionstable TIAstable - HPI History of Present Illness: 87-year-old woman who presents with her daughter for the evaluation of bloody diarrhea starting early today. Its dark and bloody and associated with some weakness but not dizziness. No history of internal bleeding. She was placed on Plavix about a week ago for a TIA and is also on aspirin. She has no abdominal pain with this. She has a history of CHERI, appendectomy, cholecystectomy. No abdominal vascular surgeries. Last colonoscopy approximately 3 years ago and negative per her. 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 Need to decide regarding antiplatelets prior to DC, Surgeon called by ER for possible colonoscopy in am. - CONSULTS | PROCEDURES Consultations: General surgery - HOSPITAL COURSE Hospital Course: After admission, patient had various amounts of blood in the stool, primarily traces of what appeared to be old blood along with melena. On day 2 of hospital stay, she had been improving and were hopeful that the patient would be able to discharge however she ended up having a bowel movement with streaks of blood, and she was kept overnight at which point her hemoglobin dropped one-point from 9.9-8.7. This prompted consulting general surgery again to evaluate the patient however in the interim the patient stopped bleeding and symptomatically improved. She was started on a clear liquid diet and kept in hospital for another 24 hours for observation at which point her hemoglobin improved and then stabilized. At this point it was felt that her bleeding had stopped and given her risk of recent TIA, Dr. Green general surgeon felt that it would be more harm than benefit to proceed with a colonoscopy at this point and recommended continued observation and conservative treatment with outpatient follow-up with Dr. Finch with general surgery. With regards to the TIA patient was initially on Plavix and aspirin but she was recommended to hold Plavix and resume aspirin alone. She was also started on a statin. Further decisions regarding antiplatelet therapy with Plavix can be decided once the patient has clearly recovered from the bleeding episode and this should be discussed further with her PCP. - ALLERGIES Allergies/Adverse Reactions: Allergies Allergy/AdvReac Type Severity Reaction Status Date / Time amoxicillin Allergy Rash Verified 09/24/22 17:54 nitrofurantoin Allergy Rash Verified 09/24/22 17:54 [From Macrobid] Penicillins Allergy Rash Verified 09/24/22 17:54 phenazopyridine Allergy Rash Verified 09/24/22 17:54 [From Pyridium] sulfamethoxazole Allergy Rash Verified 09/24/22 17:54 [From Bactrim] trimethoprim [From Bactrim] Allergy Rash Verified 09/24/22 17:54 - MEDICATIONS Home Medications: Ambulatory Orders Medication Instructions Recorded Confirmed Aspirin [Aspirin EC] 81 mg PO DAILY 10/01/20 09/24/22 Valsartan [Diovan] 80 mg PO DAILY 10/01/20 09/24/22 Levothyroxine Sodium [Synthroid] 137 mcg PO QDAC 09/25/22 09/25/22 hydroCHLOROthiazide [Hydrodiuril] 12.5 mg PO DAILY 09/25/22 09/25/22 Atorvastatin [Lipitor] 40 mg PO QPM #30 tab 09/28/22 Levothyroxine [Synthroid] 25 mcg PO QDAC tab 09/28/22 Levothyroxine [Synthroid] 112 mcg PO QDAC tab 09/28/22 - PHYSICAL EXAM AT DISCHARGE General Appearance: positive: No acute distress Eyes Bilateral: positive: Normal inspection Neck: positive: Nml inspection Respiratory: positive: Chest non-tender, No respiratory distress, Breath sounds nml Cardiovascular: positive: Regular rate & rhythm, No murmur, No gallop Peripheral Pulses: positive: 2+ Abdomen: positive: Non-tender, No organomegaly, Nml bowel sounds Skin: positive: Color nml, No rash, Warm Neurologic/Psychiatric: positive: Oriented x3 - LABS Result Diagrams: 09/28/22 04:34 09/28/22 04:34 - SEPSIS Current Stage of Sepsis: Ruled out - FOLLOW UP Follow Up: PCP - TIME SPENT Time Spent in Discharge (Minutes): 32"
== END 2022-09-28 14:35 | disposition home or self-care (01) | DRG 379 ==
LOC: ED 17:32 → MS3 20:03 → OBSVTOIN 09-26 10:10
PROVIDERS: ADMIT Internal Medicine; ATTEND Family Medicine Sports Medicine
DX: K92.2 Gastrointestinal hemorrhage, unspecified (principal); I10 Essential (primary) hypertension; E03.9 Hypothyroidism, unspecified; R73.9 Hyperglycemia, unspecified; Z86.73 Personal history of transient ischemic attack (TIA), and cerebral infarction without residual deficits; Z79.82 Long term (current) use of aspirin; Z79.02 Long term (current) use of antithrombotics/antiplatelets; E66.9 Obesity, unspecified; Z68.31 Body mass index [BMI] 31.0-31.9, adult; Z85.3 Personal history of malignant neoplasm of breast; Z85.43 Personal history of malignant neoplasm of ovary
CPT/HCPCS: 36415; 80053; 80061; 82272; 83036; 85018; 85025; 85610; 86850; 86900; 86901; 96374; 96376; 99284; 99285; A9270; G0378; 83721

== ENCOUNTER 2022-10-15 10:39 | Outpatient (CLI) | payer MEDICARE ==
[2022-10-15 12:23] LABS: BASOPHILS # (AUTO) 0.1 10^3/uL (0.0-0.1); BASOPHILS % (AUTO) 0.9 %; EOSINOPHILS # (AUTO) 0.6 10^3/uL (0.0-0.7); EOSINOPHILS % (AUTO) 8.2 %; HCT - HEMATOCRIT 32.3 % (37.0-47.0); HGB - HEMOGLOBIN 10.1 g/dL (12.0-16.0); LYMPHOCYTES # (AUTO) 1.5 10^3/uL (1.5-3.5); LYMPHOCYTES % (AUTO) 19.1 %; MEAN CORPUSCULAR HEMOGLOBIN 26.5 pg (27.0-31.0); MEAN CORPUSCULAR HGB CONC 31.3 g/dL (32.0-36.0); MEAN CORPUSCULAR VOLUME 84.8 fL (81.0-99.0); MEAN PLATELET VOLUME 10.4 fL (7.9-10.8); MONOCYTES # (AUTO) 0.7 10^3/uL (0.0-1.0); MONOCYTES % (AUTO) 8.6 %; NEUTROPHILS # (AUTO) 4.8 10^3/uL (1.5-6.6); NEUTROPHILS % (AUTO) 62.9 %; PLT - PLATELET COUNT 364 10^3/uL (130-450); RED BLOOD COUNT 3.81 10^6/uL (4.20-5.40); RED CELL DISTRIBUTION WIDTH 13.2 % (12.0-15.0); WHITE BLOOD COUNT 7.7 x10^3/uL (4.8-10.8)
[2022-10-15 12:30] LABS: ALBUMIN 3.5 g/dL (3.2-5.5); ALBUMIN/GLOBULIN RATIO 1.2 (1.0-2.2); BILIRUBIN,TOTAL 0.7 mg/dL (0.2-1.0); CALCIUM 8.8 mg/dL (8.5-10.3); CREATININE 0.6 mg/dL (0.4-1.0); POTASSIUM 3.6 mmol/L (3.5-5.0); TOTAL PROTEIN 6.5 g/dL (6.7-8.2)
== END 2022-10-15 10:40 | disposition home or self-care (01) ==
LOC: LAB.N 10:39
PROVIDERS: ATTEND Family Medicine
DX: D64.9 Anemia, unspecified (principal); E88.09 Other disorders of plasma-protein metabolism, not elsewhere classified
CPT/HCPCS: 36415; 80053; 85025

== ENCOUNTER 2023-05-26 08:00 | Outpatient (CLI) | payer MEDICARE | END 2023-05-26 23:59 | disposition home or self-care (01) | LOC: LAB.N 08:00 | PROVIDERS: ATTEND Physician Assistant Medical | DX: R05.1 Acute cough (principal) ==

== ENCOUNTER 2023-05-26 10:00 | Outpatient (CLI) | payer MEDICARE ==
--- NOTE | 2023-05-26 12:53 | XRAY Report ---
PROCEDURE: Chest 2 View X-Ray INDICATIONS: ACUTE COUGH TECHNIQUE: 2 views of the chest were acquired. COMPARISON: CT chest 12/08/2022. FINDINGS: Surgical changes and devices: Right upper quadrant surgical clips. Lungs and pleura: No pleural effusions or pneumothorax. Lungs are clear. Mediastinum: Mediastinal contours appear normal. Heart size is normal. Bones and chest wall: No suspicious bony lesions. Overlying soft tissues appear unremarkable. IMPRESSION: No acute cardiopulmonary process. Reviewed by: Alo Ortiz MD on 05/26/2023 12:52 PM PST Approved by: Alo Ortiz MD on 05/26/2023 12:52 PM PST Station ID: [id number]
== END 2023-05-26 10:15 | disposition home or self-care (01) ==
LOC: DI.N 10:00
PROVIDERS: ATTEND Physician Assistant Medical
DX: R05.1 Acute cough (principal)

== ENCOUNTER 2023-12-01 12:49 | Outpatient (CLI) | payer MEDICARE ==
--- NOTE | 2023-12-01 15:16 | CT Report ---
PROCEDURE: Sinus INDICATIONS: CHRONIC PANSINUSITIS TECHNIQUE: Noncontrast 3.0 mm axial images acquired from the frontal sinuses to the mid-sella, with coronal and sagittal reformats. For radiation dose reduction, the following was used: automated exposure control , adjustment of mA and/or kV according to patient size. COMPARISON: Correlation is made with head CT, 09/16/2022 FINDINGS: Image quality: Excellent. Maxillary Sinuses: There is at least moderate mucosal thickening within the right maxillary sinus. Sc attered mucus retention cyst can be seen within the left maxillary sinus. The superior medial lopez o f the maxillary sinuses are demineralized. Ethmoid Air Cells: Numerous areas of bony septations have been removed within the ethmoid air cells. At least moderate mucosal thickening can be seen within the remaining ethmoid air cells. Sphenoid Sinuses: Moderate mucosal thickening can be seen on the right. No definite bony changes are seen. Frontal Sinuses: Mild mucosal thickening can be seen involving the inferior aspects of the frontal s inuses. No definite bony changes are seen. Ostiomeatal Complexes: The ostiomeatal complexes are believed to have been previously removed. Miscellaneous: Visualized intra-orbital contents are normal. There is abnormal areas of soft tissue within the nasal cavity on both sides. Prominent portions of t he middle turbinates and superior turbinates have been removed. The inferior turbinates are partially demineralized. There is minimal leftward nasal septal deviation. A portion of the nasal septum is perforated, as see n on series 7 image 32. 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 IMPRESSION: Abnormal soft tissue can be seen within the nasal cavity on both sides, which is attributed to nasal polyps. Prior postoperative change, with removal of multiple bony sites. Underlying paranasal sinus disease can be seen, which is overall worst involving the right maxillary sinus. Reviewed by: Nader Arnett MD on 12/01/2023 2:14 PM YOUNG Approved by: Nader Arnett MD on 12/01/2023 2:14 PM YOUNG Station ID: [id number]
== END 2023-12-01 12:50 | disposition home or self-care (01) ==
LOC: DI 12:49
PROVIDERS: ATTEND Otolaryngology
DX: J33.8 Other polyp of sinus (principal); J32.4 Chronic pansinusitis

== ENCOUNTER 2024-01-05 12:19 | Outpatient (CLI) | payer MEDICARE ==
--- NOTE | 2024-01-07 09:15 | Mammography Report ---
BILATERAL DIGITAL SCREENING MAMMOGRAM 3D/2D: 01/05/2024 CLINICAL: Routine screening. Personal history of right breast cancer. Comparison is made to exams dated: 01/01/2023 mammogram - [facility], 11/21/2021 mamm ogram - [facility], 10/08/2020 mammogram - [facility], 07/05/2020 mammogram, 06/05 mammogram - [facility], and 06/17/2017 mammogram - outside location. There are scattered areas of fibroglandular density in both breasts (category b / 25%-50% glandular t issue). There are benign post operative findings in the right breast. There is a new oval focal asymmetry in the left breast at 10 o'clock posterior depth. No other significant masses, calcifications, or other findings are seen in either breast. IMPRESSION: INCOMPLETE: NEEDS ADDITIONAL IMAGING EVALUATION The new oval focal asymmetry in the left breast has a differential diagnosis of a skin lesion and is indeterminate. Additional views with possible ultrasound are recommended. This exam was interpreted at Station ID: [id number]. NOTE: For mammograms, a report in lay terms will be sent to the patient. Approximately 15% of breast malignancies will not be visualized mammographically. In the management of a palpable breast mass, a negative mammogram must not discourage biopsy of a clinically suspicious lesion. Electronically Signed By: Juwan [email or web address]/[email or web address]:01/05/2024 16:16:36 copy to: ASYA MANZO copy to: YVES RHODES letter sent: No_Letter ACR BI-RADS Category 0: Incomplete [id number] PARENCHYMAL PATTERN: (A) - The breast(s) demonstrate(s) scattered fibroglandular densities. BI-RADS CATEGORY: (0) - 0 Mammo and [place] [id number] Immediate follow-up LATERALITY: (L)
== END 2024-01-05 12:20 | disposition home or self-care (01) ==
LOC: DI 12:19
DX: Z12.31 Encounter for screening mammogram for malignant neoplasm of breast (principal); Z85.3 Personal history of malignant neoplasm of breast; R92.323 Mammographic fibroglandular density, bilateral breasts; R92.8 Other abnormal and inconclusive findings on diagnostic imaging of breast

== ENCOUNTER 2024-01-05 12:20 | Outpatient (CLI) | payer MEDICARE ==
--- NOTE | 2024-01-05 22:26 | DEXA Report ---
PROCEDURE: Dexa Spine and/or Hip INDICATIONS: OSTEOPENIA TECHNIQUE: Dual energy x-ray absorptiometry (DXA) was performed on a VesselVanguard System. Regions measur ed are the AP Spine, femoral neck, and if needed forearm. COMPARISON: None FINDINGS: Lumbar Spine: Bone Mineral Density: 1.097 g/cm/cm,T score: -0.7. Left Femoral Neck: Bone Mineral Density: 0.697 g/cm/cm, T score: -2.5. Left Hip: Bone Mineral Density: 0.762 g/cm/cm,T score: -1.9. 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 Patients with diagnosis of osteoporosis or osteopenia should have regular bone mineral density assess ment. For those eligible for Medicare, routine testing is allowed once every 2 years. Testing frequ ency can be increased for patients who have rapidly progressing disease or for those who are receivin g medical therapy to restore bone mass. Reviewed by: Theresa Victoria MD on 01/05/2024 10:24 PM PDT Approved by: Theresa Victoria MD on 01/05/2024 10:24 PM PDT Station ID: [id number]
== END 2024-01-05 12:21 | disposition home or self-care (01) ==
LOC: DI 12:20
PROVIDERS: ATTEND Family Medicine
DX: M81.0 Age-related osteoporosis without current pathological fracture (principal)

== ENCOUNTER 2024-01-24 21:48 | Emergency (ER) | payer MEDICARE ==
--- NOTE | 2024-01-24 22:00 | ED Physician Documentation ---
PD HPI FOCAL NEURO - Stated complaint Stated Complaint: UNABLE TO SPEAK - Chief complaint Chief Complaint: Neuro - History obtained from History obtained from: Patient, Family - Additional information Additional information: 88-year-old female with history of breast cancer status post lumpectomy, previous history of TIA presents by private vehicle from home for difficulty speaking. Patient was with her daughter around 930 when daughter asked her question and the patient's speech was very garbled. She states that this is the same thing that has happened when patient has had a TIA in the past, so she gave her full dose aspirin and brought her in for evaluation. By the time of arrival to the emergency department patient's speech had returned back to her baseline. She is ambulatory with a cane, which is her baseline. Review of Systems Constitutional: denies: Fever, Chills Musculoskeletal: denies: Neck pain, Back pain, Extremity pain, Joint pain, Extremity swelling Neurologic: reports: Difficulty speaking. denies: Generalized weakness, Focal weakness, Numbness, Near syncope, Syncope, Seizure, Confused PD PAST MEDICAL HISTORY - Past Medical History Past Medical History: Yes Cardiovascular: Hypertension Respiratory: None Neuro: TIA Endocrine/Autoimmune: HyPOthyroidism GI: None MECHANIST: Ovarian cancer, Breast cancer : Chronic bladder infection HEENT: Chronic vision loss, Chronic hearing loss, Other Psych: None, Anxiety Musculoskeletal: Osteoarthritis Derm: None - Past Surgical History Past Surgical History: Yes General: Cholecystectomy, Appendectomy, Colonoscopy Ortho: Rotator cuff repair, Arthroscopic surgery /MECHANIST: Hysterectomy, Oophrectomy HEENT: Cataracts - Present Medications Home Medications: Ambulatory Orders Medication Instructions Recorded Confirmed Aspirin [Aspirin EC] 81 mg PO DAILY 10/01/20 01/24/24 Valsartan [Diovan] 80 mg PO DAILY 10/01/20 01/24/24 Levothyroxine Sodium [Synthroid] 137 mcg PO QDAC 09/25/22 01/24/24 Exemestane [Aromasin] 25 mg PO DAILY 11/06/23 01/24/24 Valsartan [Diovan] 80 mg PO DAILY 01/24/24 01/24/24 hydroCHLOROthiazide [Hydrodiuril] 12.5 mg PO DAILY 01/24/24 01/24/24 - Allergies Allergies/Adverse Reactions: Allergies Allergy/AdvReac Type Severity Reaction Status Date / Time amoxicillin Allergy Rash Verified 01/24/24 21:52 nitrofurantoin Allergy Rash Verified 01/24/24 21:52 [From Macrobid] Penicillins Allergy Rash Verified 01/24/24 21:52 phenazopyridine Allergy Rash Verified 01/24/24 21:52 [From Pyridium] sulfamethoxazole Allergy Rash Verified 01/24/24 21:52 [From Bactrim] trimethoprim [From Bactrim] Allergy Rash Verified 01/24/24 21:52 - Social History Does the pt smoke?: No Smoking Status: Never smoker Does the pt drink ETOH?: Yes Does the pt have substance abuse?: No - Immunizations Immunizations are current?: Yes - POLST Patient has POLST: No PD ED PE NORMAL - Vitals Vital signs reviewed: Yes - General General: Alert and oriented X 3, No acute distress, Well developed/nourished - Cardiac Cardiac: RRR, Strong equal pulses - Respiratory Respiratory: No respiratory distress, Clear bilaterally - Abdomen Abdomen: Soft, Non tender, Non distended - Derm Derm: Normal color, Warm and dry, No rash - Extremities Extremities: No deformity, No tenderness to palpate, Normal ROM s pain, No edema - Neuro Neuro: Alert and oriented X 3, 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, No motor deficit, No sensory deficit, Normal speech Results - Vitals Vitals: Vital Signs - 24 hr 01/24/24 01/24/24 01/24/24 21:52 22:25 22:55 Temperature 36.8 C Heart Rate 100 89 87 Respiratory 24 28 H 28 H Rate Blood Pressure 152/82 H 179/90 H 133/79 H O2 Saturation 94 95 95 01/24/24 01/25/24 01/25/24 23:25 00:00 00:30 Temperature Heart Rate 90 95 95 Respiratory 27 H 26 H 24 Rate Blood Pressure 137/82 H 135/89 H 143/83 H O2 Saturation 96 94 94 01/25/24 01:00 Temperature Heart Rate 97 Respiratory 23 Rate Blood Pressure 135/83 H O2 Saturation 97 Oxygen O2 Source Room air - Labs Labs: Laboratory Tests 01/24/24 01/24/24 01/24/24 22:03 22:03 22:03 WBC 9.8 RBC 5.51 H Hgb 14.3 Hct 45.8 MCV 83.1 MCH 26.0 L MCHC 31.2 L RDW 14.8 Plt Count 253 MPV 10.3 Neut # (Auto) 5.1 Lymph # (Auto) 3.0 Reeves # (Auto) 0.6 Eos # (Auto) 1.1 H Baso # (Auto) 0.1 Absolute Nucleated RBC 0.00 Nucleated RBC % 0.0 Manual Slide Review Indicated Platelet Estimate NORMAL (130-450,000) Platelet Morphology NORMAL APPEARANCE RBC Morph Micro Appear 2+ ACANTHOCYTES PT 13.1 H INR 1.2 Sodium 136 Potassium 3.8 Chloride 99 L Carbon Dioxide 28 Anion Gap 9.0 BUN 19 Creatinine 0.9 Estimated GFR (MDRD) 59 L Glucose 109 H Calcium 9.9 Magnesium 1.8 Total Bilirubin 0.8 AST 17 ALT 17 Alkaline Phosphatase 116 Total Protein 7.2 Albumin 4.3 Globulin 2.9 Albumin/Globulin Ratio 1.5 Urine Color Urine Clarity Urine pH Ur Specific [place] Urine Protein Urine Glucose (UA) Urine Ketones Urine Occult Blood Urine Nitrite Urine Bilirubin Urine Urobilinogen Ur Leukocyte Esterase Urine RBC Urine WBC Ur Squamous Epith Cells Amorphous Sediment Urine Bacteria Ur Microscopic Review Urine Culture Comments 01/24/24 22:30 WBC RBC Hgb Hct MCV MCH MCHC RDW Plt Count MPV Neut # (Auto) Lymph # (Auto) Reeves # (Auto) Eos # (Auto) Baso # (Auto) Absolute Nucleated RBC Nucleated RBC % Manual Slide Review Platelet Estimate Platelet Morphology RBC Morph Micro Appear PT INR Sodium Potassium Chloride Carbon Dioxide Anion Gap BUN Creatinine Estimated GFR (MDRD) Glucose Calcium Magnesium Total Bilirubin AST ALT Alkaline Phosphatase Total Protein Albumin Globulin Albumin/Globulin Ratio Urine Color YELLOW Urine Clarity CLOUDY Urine pH 6.0 Ur Specific [place] 1.015 Urine Protein NEGATIVE Urine Glucose (UA) NEGATIVE Urine Ketones NEGATIVE Urine Occult Blood NEGATIVE Urine Nitrite POSITIVE H Urine Bilirubin NEGATIVE Urine Urobilinogen 0.2 (NORMAL) Ur Leukocyte Esterase MODERATE H Urine RBC 0-5 Urine WBC >25 H Ur Squamous Epith Cells FEW Squamous Amorphous Sediment Moderate Urine Bacteria Many H Ur Microscopic Review INDICATED Urine Culture Comments INDICATED PD Medical Decision Making - ED course Complexity details: reviewed old records, reviewed results, re-evaluated patient, considered differential, d/w patient, d/w family ED course: Garbled, unintelligible speech, already resolved by the time of arrival to the emergency department. Stroke alert initiated on arrival, however patient is not a candidate for tPA or TNKase due to short duration of symptoms as well as rapid improvement. NIH is currently 0. CT brain, CT angio negative for acute findings. Teleneurology recommended a spirin, Plavix, Lipitor, MRI brain. Unfortunately we do not have MRI capabilities for at least the next 24 hours. 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 Call placed to [facility] for transfer for TIA evaluation. Patient accepted by Dr. Bermudez for transfer. Patient incidentally noted to have wbcs, bacteria, nitrite on UA, oral keflex given in ED. Departure - Departure Disposition: 02 Transfer Acute Care Hosp Clinical Impression: TIA (transient ischemic attack), UTI (urinary tract infection) Condition: Stable Forms: PCP List Discharge Date/Time: 01/25/24 01:25
[2024-01-24] MEDS ORDERED: iohexoL-300 100 ML VIAL ONE (22:04)
[2024-01-24 22:08] LABS: BASOPHILS # (AUTO) 0.1 10^3/uL (0.0-0.1); BASOPHILS % (AUTO) 0.8 %; EOSINOPHILS # (AUTO) 1.1 10^3/uL (0.0-0.7); EOSINOPHILS % (AUTO) 10.8 %; HCT - HEMATOCRIT 45.8 % (37.0-47.0); HGB - HEMOGLOBIN 14.3 g/dL (12.0-16.0); LYMPHOCYTES % (AUTO) 30.1 %; MEAN CORPUSCULAR HGB CONC 31.2 g/dL (32.0-36.0); MEAN CORPUSCULAR VOLUME 83.1 fL (81.0-99.0); MEAN PLATELET VOLUME 10.3 fL (7.9-10.8); MONOCYTES # (AUTO) 0.6 10^3/uL (0.0-1.0); MONOCYTES % (AUTO) 5.9 %; NEUTROPHILS # (AUTO) 5.1 10^3/uL (1.5-6.6); NEUTROPHILS % (AUTO) 52.2 %; PLT - PLATELET COUNT 253 10^3/uL (130-450); RED BLOOD COUNT 5.51 10^6/uL (4.20-5.40); RED CELL DISTRIBUTION WIDTH 14.8 % (12.0-15.0); WHITE BLOOD COUNT 9.8 x10^3/uL (4.8-10.8)
[2024-01-24 22:12] LABS: SLIDE REVIEW? Indicated
[2024-01-24 22:20] LABS: INR 1.2 (0.8-1.2); PT - PROTHROMBIN TIME 13.1 secs (9.9-12.6)
[2024-01-24 22:25] LABS: ALBUMIN 4.3 g/dL (3.2-5.5); ALBUMIN/GLOBULIN RATIO 1.5 (1.0-2.2); BILIRUBIN,TOTAL 0.8 mg/dL (0.2-1.0); CALCIUM 9.9 mg/dL (8.5-10.3); CREATININE 0.9 mg/dL (0.6-1.3); MAGNESIUM 1.8 mg/dL (1.7-2.3); POTASSIUM 3.8 mmol/L (3.5-4.5); TOTAL PROTEIN 7.2 g/dL (6.4-8.9)
--- NOTE | 2024-01-24 22:43 | CT Report ---
PROCEDURE: Head W/O Stroke Protocol INDICATIONS: DIFFICULTY SPEAKING X 1 HR TECHNIQUE: Noncontrast 4.5 mm thick angled axial sections acquired from the foramen magnum to the vertex, with c oronal reformats. For radiation dose reduction, the following was used: automated exposure control, adjustment of mA and/or kV according to patient size. COMPARISON: None. FINDINGS: Image quality: Excellent. CSF spaces: Basal cisterns are patent. No extra-axial fluid collections. Ventricles are normal in size and shape. Brain: No midline shift. No intracranial masses or hemorrhage. Chavez-white matter interface is norm al. Skull and face: Calvarium and visualized facial bones are intact, without suspicious lesions. Sinuses: Pansinusitis. IMPRESSION: No acute intracranial pathology. Pansinusitis. Above discussed with La Gibbs MD at the 10:40 pm on 01/24/24. This study fulfills neurological imaging criteria for inclusion or exclusion of acute stroke therapie s based on available published neurological imaging guidelines. Reviewed by: Shailesh Agosto MD on 01/24/2024 10:41 PM PDT Approved by: Shailesh Agosto MD on 01/24/2024 10:41 PM PDT Station ID: [id number]
[2024-01-24 22:44] LABS: BILIRUBIN,URINE NEGATIVE (NEGATIVE); GLUCOSE, URINE (UA) NEGATIVE (NEGATIVE); KETONES,URINE (UA) NEGATIVE (NEGATIVE); LEUKOCYTE ESTERASE, URINE MODERATE (NEGATIVE); NITRITE,URINE POSITIVE (NEGATIVE); OCCULT BLOOD,URINE NEGATIVE (NEGATIVE); PROTEIN,URINE NEGATIVE (NEGATIVE); UROBILINOGEN,URINE 0.2 (NORMAL) E.U./dL (NORMAL)
--- NOTE | 2024-01-24 22:45 | CT Report ---
PROCEDURE: Angio Head/Neck INDICATIONS: DIFFICULTY SPEAKING X 1 HR TECHNIQUE: After the administration of intravenous contrast, 1 mm thick sections acquired from the aortic arch t hrough the [place]. 3-dimensional okxmrwe-yebrkbvoq-hgvbjmzcio (MIP) and/or volume renderin g reformats were acquired of the central intracranial vasculature and neck separately. For radiation dose reduction, the following was used: automated exposure control, adjustment of mA and/or kV acco rding to patient size. CONTRAST: 80 ML OMNI 300 COMPARISON: Same day head CT. Angiogram 09/16/2022. FINDINGS: Image quality: Diagnostic. HEAD CT: No significant change from same day head CT. HEAD CT ANGIOGRAPHY: Anterior circulation: Intracranial internal carotid arteries are normal in size and flow. The flow within the paired anterior cerebral arteries is normal and symmetric. The flow within the middle cer ebral arteries is normal and symmetric. The anterior communicating artery is seen. No aneurysms are seen. Posterior circulation: Visualized portions of the vertebral arteries demonstrate normal caliber, and join to form a normal appearing basilar artery. Flow within the posterior cerebral arteries is norm al and symmetric. No aneurysms are seen. NECK CT ANGIOGRAPHY: Carotid system: The great vessels demonstrate a conventional anatomy as they arise from the aortic a rch. The origins of the common carotid arteries appear patent. The common carotid arteries demonstr ate normal caliber and courses. The bifurcation regions are both widely patent. The internal caroti d arteries demonstrate normal calibers and courses. Posterior circulation: The origins of the vertebral arteries both appear widely patent. The more ahumada perior extracranial portions of both vertebral arteries also demonstrate normal courses and calibers. They join to form a normal appearing basilar artery. Soft tissues: Visualized neck soft tissues demonstrate no suspicious abnormalities. Thyroidectomy. M osaic attenuation of the lungs, suggestive of air trapping. Bones: No suspicious bony lesions. Visualized cervical spine appears normally aligned. IMPRESSION: No significant intracranial arterial abnormality is seen. No significant abnormality is seen within the arteries of the neck. The estimate of stenosis included in the report of the imaging study was calculated using the NASCET method Reviewed by: Shailesh Agosto MD on 01/24/2024 10:44 PM PDT Approved by: Shailesh Agosto MD on 01/24/2024 10:44 PM PDT Station ID: [id number]
[2024-01-24 22:46] LABS: CLARITY,URINE CLOUDY (CLEAR)
[2024-01-24 22:50] LABS: PLATELET ESTIMATE, MANUAL NORMAL (130-450,000) (NORMAL); PLATELET MORPHOLOGY NORMAL APPEARANCE (NORMAL); RBC MORPHOLOGY (MULTIPLE) 2+ ACANTHOCYTES (NORMAL)
[2024-01-24 22:55] LABS: AMORPHOUS SEDIMENT,UR Moderate /LPF; BACTERIA,URINE Many /HPF (None Seen); RBC,URINE 0-5 /HPF (0-5); SQUAMOUS EPITHELIAL CELL,UR FEW Squamous (<= Few); WBC,URINE >25 /HPF (0-5)
--- NOTE | 2024-01-25 00:12 | XRAY Report ---
PROCEDURE: Chest 1V INDICATIONS: STROKE ALERT TECHNIQUE: One view of the chest was acquired. COMPARISON: 05/26/2023 FINDINGS: Surgical changes and devices: Cholecystectomy clips. Lungs and pleura: No pleural effusions or pneumothorax. Lungs are clear. Streaky left midlung opaci ty, likely atelectasis. Mediastinum: Mediastinal contours appear normal. Heart size is normal. Bones and chest wall: No suspicious bony lesions. Overlying soft tissues appear unremarkable. IMPRESSION: No acute cardiopulmonary process. Reviewed by: Shailesh Agosto MD on 01/25/2024 12:11 AM PDT Approved by: Shailesh Agosto MD on 01/25/2024 12:11 AM PDT Station ID: [id number]
[2024-01-25] MEDS: cephALEXin 250 MG CAPSULE PO STA (00:25)
[2024-01-25 01:40] VITALS: BP 135/83; O2SAT 97
[2024-01-25] MEDS: iohexoL-300 100 ML VIAL IVP ONE (01:47)
== END 2024-01-25 01:25 | disposition short-term general hospital (02) ==
LOC: ED 21:48
DX: N39.0 Urinary tract infection, site not specified (principal); G45.9 Transient cerebral ischemic attack, unspecified; I10 Essential (primary) hypertension; E03.9 Hypothyroidism, unspecified; Z86.73 Personal history of transient ischemic attack (TIA), and cerebral infarction without residual deficits; Z79.82 Long term (current) use of aspirin; Z79.899 Other long term (current) drug therapy
CPT/HCPCS: 36415; 70450; 70496; 70498; 71045; 80053; 81001; 83735; 85025; 85610; 87077; 87086; 87181; 93005; 99284; 99285; A9270; Q9967; 81003

== ENCOUNTER 2024-01-25 01:31 | Outpatient (CLI) | payer MEDICARE | END 2024-01-25 23:59 | disposition short-term general hospital (02) | LOC: EMS 01:31 | PROVIDERS: ATTEND Emergency Medicine | DX: G45.9 Transient cerebral ischemic attack, unspecified (principal) | CPT/HCPCS: A0425; A0428 ==

== ENCOUNTER 2024-02-12 12:32 | Outpatient (CLI) | payer MEDICARE ==
--- NOTE | 2024-02-16 08:10 | Mammography Report ---
UNILATERAL LEFT DIGITAL DIAGNOSTIC MAMMOGRAM 3D/2D WITH SPOT COMPRESSION: 02/12/2024 CLINICAL: Patient returns today to evaluate a focal asymmetry in the left breast. Comparison is made to exams dated: 01/05/2024 mammogram, 01/01/2023 mammogram - [facility], 11/21/2021 mammogram, and 06/05/2020 mammogram - [facility]. The left breast is almost entirely fatty (category a/<25% glandular tissue). There is an 8 mm oval equal density mass with a circumscribed margin in the left breast at 9 o'clock posterior depth. This is seen in additional views. No other significant masses or calcifications are seen in the breast. IMPRESSION: INCOMPLETE: NEEDS ADDITIONAL IMAGING EVALUATION The 8 mm oval mass in the left breast most likely is a cyst or a lymph node but remains indeterminat e. An ultrasound is recommended. This was performed immediately following this exam. This exam was interpreted at Station ID: [id number]. NOTE: For mammograms, a report in lay terms will be sent to the patient. Approximately 15% of breast malignancies will not be visualized mammographically. In the management of a palpable breast mass, a negative mammogram must not discourage biopsy of a clinically suspicious lesion. Electronically Signed By: Amarilys plunkett/:02/12/2024 13:06:04 copy to: ASYA MANZO copy to: YVES RHODES ACR BI-RADS Category 0: Incomplete 3340F PARENCHYMAL PATTERN: (F) - The breast(s) demonstrate(s) diffuse fatty replacement. BI-RADS CATEGORY: (0) - 0 Ultrasound [id number] Immediate follow-up LATERALITY: (B)
--- NOTE | 2024-02-16 08:10 | Ultrasound Report ---
LIMITED ULTRASOUND OF LEFT BREAST: 02/12/2024 CLINICAL: Patient returns today to evaluate a focal asymmetry in the left breast. Comparison is made to exams dated: 01/05/2024 mammogram, 01/01/2023 mammogram - [facility], and 12/24/2021 ultrasound - [facility]. Color flow ultrasound of the left breast 9-10 o'clock region was performed. Chavez scale images of th e real-time examination were reviewed. There is a 0.6 cm x 0.5 cm x 0.5 cm round subdermal cyst in the left breast at 10 o'clock posterior d epth 11 cm from the nipple. This round cyst is hypoechoic with mild internal echoes, an abrupt bound philip and a tract through the skin to the surface. This correlates with mammography findings. Color f low imaging demonstrates that there is no vascularity present. IMPRESSION: BENIGN The 0.6 cm cyst in the left breast corresponds to the mammogram finding, most likely is a sebaceous c yst or folliculitis, and is benign. A 1 year screening mammogram is recommended. Findings and recommendations were conveyed to the patient at time of exam. This exam was interpreted at Station ID: [id number]. Electronically Signed By: Amarilys plunkett/:02/12/2024 13:30:05 copy to: ASYA MANZO copy to: YVES RHODES letter sent: No_Letter Ultrasound BI-RADS: 2 Benign BI-RADS CATEGORY: (2) - 2 RECOMMENDATION: (ANNUAL) - Recommend routine annual screening mammography. [id number] 1 year screening LATERALITY: (B)
== END 2024-02-12 12:33 | disposition home or self-care (01) ==
LOC: DI 12:32
PROVIDERS: ATTEND Family Medicine
DX: N60.02 Solitary cyst of left breast (principal)